=== PATIENT | female | born 1960 | race Two or more races ===

== ENCOUNTER 2020-04-24 12:53 | Outpatient (REF) | payer OTHER, SELFPAY ==
--- NOTE | 2020-04-24 | US_ITS ---
EXAMINATION: MM DIAGNOSTIC DIGITAL BREAST TOMOSYNTHESIS, BILATERAL US DIAGNOSTIC ULTRASOUND BREAST, RIGHT CLINICAL INFORMATION: Due for yearly exam. Also probable benign nodule/cyst anterior 8:00 right breast for follow-up surveillance. The lifetime risk of breast cancer based on the Tyrer-Cuzick Model is 6%. COMPARISON: Mammography: 10/26/2019, 02/18/2019, 02/15/2019, 10/08/2017, 10/01/2015, 07/28/2014; ultrasound right breast 02/18/2019, 10/26/2019. TECHNIQUE: Digital breast tomosynthesis is performed in both the craniocaudal and mediolateral oblique views along with computer-aided detection (CAD). Synthesized 2D images are generated from the tomosynthesis. Ultrasound right breast is targeted to the outer quadrant 6:00 through 11:00 position. Grayscale imaging and color Doppler are performed without and with harmonics. FINDINGS: There are scattered areas of fibroglandular density (ACR BI-RADS breast composition Category b). There is nodular or interval pattern similar to prior studies. The nodule anterior 8:00 right breast for follow-up is decreased since 2018 and in retrospect similar to more remote mammography dating back to 2014. There is now considered benign. There is no developing density. Retroareolar duct ectasia are stable. Dominant nodule posterior right breast is stable. There are no abnormal calcifications. The axilla and skin contours are unremarkable. Ultrasound right breast demonstrates a small septated cyst versus 2 adjacent cysts 8:00 position 6 cm from nipple, slightly smaller now measuring under 4 mm. There is considered benign. There is no solid component or associated color flow. Results are discussed with the patient at time of visit. US/US breast RT limited IMPRESSION: 1. No mammographic evidence of malignancy. 2. Small nodule anterior 8:00 right breast slightly decreased. ASSESSMENT: BI-RADS 2: Benign RECOMMENDATION: Routine annual mammography screening. This patient's information was entered into a reminder system with a target due date for their next mammogram.
--- NOTE | 2020-04-24 13:00 | MM_ITS ---
EXAMINATION: MM DIAGNOSTIC DIGITAL BREAST TOMOSYNTHESIS, BILATERAL US DIAGNOSTIC ULTRASOUND BREAST, RIGHT CLINICAL INFORMATION: Due for yearly exam. Also probable benign nodule/cyst anterior 8:00 right breast for follow-up surveillance. The lifetime risk of breast cancer based on the Tyrer-Cuzick Model is 6%. COMPARISON: Mammography: 10/26/2019, 02/18/2019, 02/15/2019, 10/08/2017, 10/01/2015, 07/28/2014; ultrasound right breast 02/18/2019, 10/26/2019. TECHNIQUE: Digital breast tomosynthesis is performed in both the craniocaudal and mediolateral oblique views along with computer-aided detection (CAD). Synthesized 2D images are generated from the tomosynthesis. Ultrasound right breast is targeted to the outer quadrant 6:00 through 11:00 position. Grayscale imaging and color Doppler are performed without and with harmonics. FINDINGS: There are scattered areas of fibroglandular density (ACR BI-RADS breast composition Category b). There is nodular or interval pattern similar to prior studies. The nodule anterior 8:00 right breast for follow-up is decreased since 2018 and in retrospect similar to more remote mammography dating back to 2014. There is now considered benign. There is no developing density. Retroareolar duct ectasia are stable. Dominant nodule posterior right breast is stable. There are no abnormal calcifications. The axilla and skin contours are unremarkable. Ultrasound right breast demonstrates a small septated cyst versus 2 adjacent cysts 8:00 position 6 cm from nipple, slightly smaller now measuring under 4 mm. There is considered benign. There is no solid component or associated color flow. Results are discussed with the patient at time of visit. MM/MM tomosynthesis diagnostic BI IMPRESSION: 1. No mammographic evidence of malignancy. 2. Small nodule anterior 8:00 right breast slightly decreased. ASSESSMENT: BI-RADS 2: Benign RECOMMENDATION: Routine annual mammography screening. This patient's information was entered into a reminder system with a target due date for their next mammogram.
== END 2020-04-24 12:54 | disposition home or self-care (01) ==
LOC: HO.MAMMO 12:53
PROVIDERS: PCP Internal Medicine Geriatric Medicine; Visit Provider Internal Medicine Geriatric Medicine
DX: N63.13 Unspecified lump in the right breast, lower outer quadrant (principal)
CPT/HCPCS: 76642; 77062; 77066

== ENCOUNTER 2022-11-27 09:30 | Outpatient (REF) | payer OTHER, SELFPAY ==
--- NOTE | 2022-11-27 09:33 | EMG_ITS ---
Please see scanned EMG / Nerve Conduction Report. MTDD
== END 2022-11-27 09:31 | disposition home or self-care (01) ==
LOC: HO.NEURO 09:30
PROVIDERS: PCP Internal Medicine Geriatric Medicine; Visit Provider Internal Medicine Geriatric Medicine
DX: G56.03 Carpal tunnel syndrome, bilateral upper limbs (principal)
CPT/HCPCS: 95860; 95885; 95907; 95913

== ENCOUNTER 2023-07-14 10:24 | Outpatient (REF) | payer OTHER, SELFPAY ==
[2023-07-14 13:18] LABS: Alanine Aminotransferase 21 U/L (0-31); Albumin Level 3.9 g/dL (3.5-5.0); Alkaline Phosphatase 76 U/L (39-117); Anion Gap 11 (12-20); Aspartate Amino Transferase 26 U/L (5-31); Bilirubin Total 0.7 mg/dL (0.0-1.0); Blood Urea Nitrogen 11 mg/dL (9-16); Calcium 9.3 mg/dL (8.4-10.2); Carbon Dioxide 28 mmol/L (22-29); Chloride 108 mmol/L (96-108); Cholesterol 203 mg/dL (<200); Estimated Glomerular Filt Rate > 60; Glucose Random 111 mg/dL (60-115); HDL Cholesterol 62 mg/dL (>40); LDL Cholesterol Calculated 125 mg/dL (<100); Potassium 4.7 mmol/L (3.3-5.1); Sodium 142 mmol/L (135-145); Total Protein 7.3 g/dL (6.5-8.0); Triglycerides 84 mg/dL (<150)
[2023-07-14 13:31] LABS: Microalbum/Creatinine Ratio Ur 12.5 ug/mg cr (<30)
== END 2023-07-14 10:25 | disposition home or self-care (01) ==
LOC: HO.HHCL 10:24
PROVIDERS: Visit Provider Internal Medicine Geriatric Medicine
DX: E11.9 Type 2 diabetes mellitus without complications (principal); I10 Essential (primary) hypertension
CPT/HCPCS: 36415; 80053; 80061; 82043; 82570

== ENCOUNTER 2023-07-29 13:38 | Outpatient (AMB) | payer OTHER, SELFPAY ==
[2023-07-29 13:42] VITALS: BP 136/68; PULSE 78; O2SAT 97; BMI 30.9
--- NOTE | 2023-07-29 13:42 | MHC.OFFVIS ---
Intake Vital Signs 07/29/23 13:42 Height 5 ft 2 in Weight 169 lb BMI 30.9 BP 136/68 Blood Pressure Location Rt brachial Position Sitting Pulse 78 Pulse Source Pulse Oximeter Pulse Oximetry (%) 97 Oxygen Delivery Method Room Air Intake Visit Reasons: Moderate Persistent Asthma Recovery Engineer Required: No Sign Out Clerk: Sign Out Clerk offered & declined Accompanied by: Daughter Allergies aspirin Allergy (Unknown, Verified 07/29/23 13:48) Unknown penicillin V Allergy (Unknown, Verified 07/29/23 13:48) Unknown seasonal allergies Allergy (Uncoded 07/29/23 13:48) asthma sx Medication List - Last Reconciled 07/29/23 by Cynthia Hill LPN albuterol sulfate 90 mcg/actuation 2 puffs inhalation Q4-6H PRN atorvastatin 40 mg PO DAILY dulaglutide 0.75 mg subcut QWEEK fluticasone propion-salmeterol 230-21 mcg/actuation 2 puffs inhalation Q12H fluticasone propionate 50 mcg/actuation 2 sprays intranasal DAILY losartan-hydrochlorothiazide 100-12.5 mg 1 tab PO DAILY metformin 500 mg PO DAILY montelukast 10 mg PO BEDTIME omeprazole 20 mg PO DAILY primidone 50 mg PO BEDTIME HPI Moderate Persistent Asthma HPI Details Maye is a pleasant 62 year old female, never smoker, with underlying asthma, seasonal allergies, HTN, DMII and anxiety. She was referred by PCP for pulmonary evaluation. She is suboptimally controlled on Advair 230 mcg, using albuterol MDI on a daily basis. She was recently started on singulair as well as flonase and has noticed better control of symptoms. She continues to report intermittent chest tightness, dry cough, dyspnea on exertion and wheezing. She reports significant triggers with irritants and allergies. She is using a daily antihistamine. She was evaluated in urgent care a few weeks ago, with recommendations to be evaluated in the ED, but patient refused and was given prednisone, with improvement in symptoms. She reports asthma was diagnosed as an adult and denies h/o intubation. She reports multiple first degree relatives with asthma. She denies any occupational exposures. She reports having two parrots at home. [facility] Social History (Updated 07/29/23 @ 13:50 by Cynthia Hill LPN) Patient Tobacco Use Status: Never used Tobacco Review of Systems Const Denies chills, Denies excessive sweating, Denies fever(s), Denies headache(s) and Denies night sweats Eyes Denies dry eyes, Denies irritation and Denies itchy eyes ENT Reports Normal hearing present, Denies headache(s), Denies nasal congestion, Denies nasal discharge and Denies sore throat Card Denies chest pain, Denies chest pain at rest, Denies chest pain with activity, Denies claudication, Denies leg edema, Denies dyspnea, Denies orthopnea and Denies paroxysmal nocturnal dyspnea Resp Denies chest congestion, Denies excessive phlegm production, Denies pain on inspiration, Denies pain with cough, Denies dyspnea and Denies stridor Musc Denies myalgias Neuro Reports Normal hearing present and Denies headache(s) Endo Denies excessive sweating Fernando/Lymph Denies lymphadenopathy Aller/Immun Denies itchy eyes and Denies seasonal rhinorrhea Physical Exam Vital Signs: Last Vital Signs Pulse 78 07/29/23 13:42 BP 136/68 07/29/23 13:42 Pulse Ox 97 07/29/23 13:42 Oxygen Delivery Method Room Air 07/29/23 13:42 BMI result Body Mass Index 30.9 Const General: cooperative, healthy appearing, comfortable, no acute distress, well developed and alert Nutritional Appearance: obese Orientation/consciousness: patient oriented x3 Limitations: no limitations HEENT Head: Yes normal to inspection, Yes normocephalic and Yes atraumatic Ears: hearing grossly normal bilaterally and external ears normal Eyes General: appearance normal, both eyes and all related structures Eyelids: Yes eyelids normal Sclerae: sclerae normal EOM: EOMs intact bilaterally Neck Neck: Yes normal visual inspection and Yes no lymphadenopathy Lymphatic: no lymphadenopathy noted Chest Chest palpation & inspection: normal inspection of the chest Resp Other: diminished bases bilaterally Effort & Inspection: normal respiratory effort, able to speak in complete sentences, no audible wheezes, no cough, no stridor, not tachypneic, no tripod positioning and no use of accessory muscles Cardio Jugular venous distension: no JVD Rate: regular rate Rhythm: regular rhythm Skin Other: warm, dry General skin exam: no rashes or lesions noted Neuro General: patient oriented x3 Cranial nerves: Yes Normal hearing present Cognition (Neuro): normal cognition Gait exam (Neuro): Normal gait present Extrem General: Yes normal to inspection, Yes capillary refill normal, Yes no clubbing, cyanosis or edema and Yes no pedal edema Psych Appearance: grossly normal and well kempt Speech and movement: Normal speech and movement present and Clear speech present Affect: normal affect Attitude: cooperative Thought process: Normal thought process present Thought content: Normal thought content present Insight: Good insight present (Psych) Judgement: Good judgement present (Psych) Assessment & Plan Assessment & Plan (1) Asthma: Code(s): J45.909 - Unspecified asthma, uncomplicated (2) Environmental and seasonal allergies: Code(s): J30.89 - Other allergic rhinitis Plan Maye's symptoms are likely related to underlying asthma with an allergic component. Will send for PFT and RAST. Discussed possible biologics. Will also obtain CXR as patient with no recent chest imaging and reports worsening respiratory symptoms. All questions were answered and patient is in agreement of plan. Will follow up to review results. Orders: Orders Immunoglobulin E Today J30.89 - Other allergic rhinitis PFT pulmonary function test Today J45.909 - Unspecified asthma, uncomplicated XR chest 2V Today J45.909 - Unspecified asthma, uncomplicated Complete Blood Count Auto Diff Today J30.89 - Other allergic rhinitis, J45.909 - Unspecified asthma, uncomplicated Resp Allergy Profile Region I Today J30.89 - Other allergic rhinitis Coding Level of Care Code New Pt Level 4 (13582) Diagnoses Asthma J45.909 Environmental and seasonal allergies J30.89
== END 2023-07-29 14:17 | disposition home or self-care (01) ==
PROVIDERS: PCP Internal Medicine Geriatric Medicine; Referring Provider Internal Medicine Geriatric Medicine; Visit Provider Nurse Practitioner Family
DX: J45.909 Unspecified asthma, uncomplicated (principal); J30.89 Other allergic rhinitis
CPT/HCPCS: 99204

== ENCOUNTER → 2023-07-29 13:38 | Outpatient (BNVA) | payer OTHER, SELFPAY | PROVIDERS: PCP Internal Medicine Geriatric Medicine; Referring Provider Internal Medicine Geriatric Medicine; Visit Provider Nurse Practitioner Family | DX: J45.909 Unspecified asthma, uncomplicated (principal); J30.89 Other allergic rhinitis | CPT/HCPCS: 99202 ==

== ENCOUNTER 2023-08-04 12:52 | Outpatient (REF) | payer OTHER, SELFPAY ==
[2023-08-04 13:39] LABS: MANUAL DIFF FLAG NO
[2023-08-04 13:49] LABS: Basophils Percent Auto 0.7 % (0-2); Eosinophils Absolute Auto 0.2 X10*3/uL (0.0-0.4); Hematocrit 42.1 % (37.0-47.0); Hemoglobin 13.5 g/dl (12.0-16.0); Imm Gran Abs Auto 0.02 X10*3/uL (0.00-0.03); Imm Gran Pct Auto 0.3 % (0.0-0.4); Lymphocytes Absolute Auto 1.5 X10*3/uL (1.2-4.9); Lymphocytes Percent Auto 25.7 % (20-40); Mean Corpuscular HGB Conc 32.1 g/dl (31.0-35.0); Mean Corpuscular Hemoglobin 29.3 pg (27.0-33.0); Mean Corpuscular Volume 91.3 fL (80.0-98.0); Mean Platelet Volume 10.8 fL (9.4-12.3); Monocytes Absolute Auto 0.4 X10*3/uL (0.1-1.2); Monocytes Percent Auto 7.2 % (2-11); Neutrophils Absolute Auto 3.7 x10*3/uL (2.0-8.3); Neutrophils Percent Auto 62.1 % (45-73); Platelet Count 295 X10*3/uL (160-400); Red Blood Count 4.61 X10*6/uL (4.20-5.50); Red Cell Distribution Width 13.3 % (11.0-16.0)
[2023-08-05 19:43] LABS: Class Alternaria alternata 0; Class Aspergillus fumigatus 0; Class Bermuda Grass 0; Class Birch 0; Class Cat Dander 0; Class Cladosporium herbarum 0; Class Cockroach 0/1; Class Common Ragweed 0; Class Cottonwood 0; Class Derm. pterony 4; Class Dermatophagoides farinae 5; Class Dog Dander 0/1; Class Elm 0; Class Maple Box Elder 0; Class Mountain Cedar 0; Class Mouse Urine Protein 0; Class Mugwort 0; Class Oak 0; Class Penicillium crysogenum 0/1; Class Rough Pigweed 0; Class Sheep Sorrel 0; Class Sycamore 0; Class Timothy Grass 0; Class Walnut Tree 0/1; Class White Ash 0; Class White Mulberry 0; E001 - IgE Cat Dander <0.10 kU/L; E005 - IgE Dog Dander 0.34 kU/L; E072-IgE Mouse Urine <0.10 kU/L; G002 IgE Bermuda Grass <0.10 kU/L; G006 - IgE Timothy Grass <0.10 kU/L; I006-IgE Cockroach, German 0.29 kU/L; Immunoglobulin E 521 kU/L (<OR=114); M001 IgE Penicillium chrysogen 0.17 kU/L; M002 - IgE Cladosporium herbar <0.10 kU/L; M003 - IgE Aspergillus fumigat <0.10 kU/L; M006 - IgE Alternaria alternat <0.10 kU/L; T001 IgE Maple/Box Elder <0.10 kU/L; T003 IgE Common Silver Birch <0.10 kU/L; T006 - IgE Cedar, Mountain <0.10 kU/L; T007 - IgE Oak, White <0.10 kU/L; T008 IgE Elm, American <0.10 kU/L; T010 - IgE Walnut 0.13 kU/L; T011 - IgE Maple Leaf Sycamore <0.10 kU/L; T014 - IgE Cottonwood <0.10 kU/L; T015 - IgE Ash, White <0.10 kU/L; T070 - IgE White Mulberry <0.10 kU/L; W001 - IgE Ragweed, Short <0.10 kU/L; W006 - IgE Mugwort <0.10 kU/L; W014 IgE Pigweed, Common <0.10 kU/L; W018 IgE Sheep Sorrel <0.10 kU/L
== END 2023-08-04 12:53 | disposition home or self-care (01) ==
LOC: HO.WFDLDS 12:52
PROVIDERS: Visit Provider Nurse Practitioner Family
DX: J30.89 Other allergic rhinitis (principal); J45.909 Unspecified asthma, uncomplicated
CPT/HCPCS: 36415; 82785; 85025; 86003

== ENCOUNTER 2023-08-28 13:17 | Outpatient (REF) | payer OTHER, SELFPAY ==
--- NOTE | ~2023-08-28 | XR_ITS ---
EXAMINATION: XR CHEST CLINICAL INFORMATION: Unspecified asthma, uncomplicated. COMPARISON: 01/29/2019. TECHNIQUE: 2 views of the chest were obtained. FINDINGS: There is no gross pneumothorax. Heart size is normal. Mild S-shaped thoracolumbar scoliosis with multilevel degenerative changes. No pleural effusion. No new focal consolidation to suggest pneumonia. Lungs are well-inflated. XR/XR chest 2V IMPRESSION: No evidence of pneumonia.
== END 2023-08-28 13:18 | disposition home or self-care (01) ==
LOC: HO.XRAY 13:17
PROVIDERS: Visit Provider Nurse Practitioner Family
DX: J45.909 Unspecified asthma, uncomplicated (principal)
CPT/HCPCS: 71046

== ENCOUNTER 2023-09-01 12:53 | Outpatient (REF) | payer OTHER, SELFPAY ==
[2023-09-01 10:51] VITALS: PULSE 84; RESP 16; O2SAT 97
--- NOTE | 2023-09-01 15:42 | PFT_ITS ---
Indication: Asthma Spirometry [FEV1 to FVC 75%; FEV1 1.52 L; FVC 2.02 L. No significant response to bronchodilators noted. Maximum voluntary ventilation 56% predicted] Lung Volumes [Total lung capacity 76% predicted; expiratory reserve volume 31% predicted] Diffusion Capacity [DLCO is 93% predicted] Comparisons [None] Interpretation [No obstructive ventilatory defects. No significant response to bronchodilators noted. This is a moderate decrease in the maximum voluntary ventilation. The patient does have a restrictive ventilatory defect consistent mild restrictive lung disease. In part due to elevated BMI with a decreasing the expiratory reserve volume. Diffusing capacity is within normal limits. Correlation warranted. If asthma is in the differential methacholine challenge very helpful for assessing for hyperreactive airways.] MTDD
== END 2023-09-01 12:54 | disposition home or self-care (01) ==
LOC: HO.RESP 12:53
PROVIDERS: PCP Internal Medicine Geriatric Medicine; Visit Provider Nurse Practitioner Family
DX: J45.909 Unspecified asthma, uncomplicated (principal)
CPT/HCPCS: 94010; 94640; 94727; 94729

== ENCOUNTER → 2023-09-01 15:42 | Outpatient (BNV) | payer OTHER, SELFPAY | PROVIDERS: PCP Internal Medicine Geriatric Medicine; Visit Provider Hospitalist | DX: J45.909 Unspecified asthma, uncomplicated (principal) | CPT/HCPCS: 94060; 94727; 94729 ==

== ENCOUNTER 2023-09-09 13:25 | Outpatient (AMB) | payer OTHER, SELFPAY ==
--- NOTE | 2023-09-09 13:29 | A.OFFVIS_ITS ---
Vital Signs 09/09/23 13:30 Height 5 ft 2 in Weight 169 lb BMI 30.9 BP 122/66 Blood Pressure Location Rt brachial Position Sitting Pulse 72 Pulse Source Pulse Oximeter Pulse Oximetry (%) 97 Oxygen Delivery Method Room Air Intake Visit Reasons: moderate persistent asthma Allergies aspirin Allergy (Unknown, Verified 09/09/23 13:32) Unknown penicillin V Allergy (Unknown, Verified 09/09/23 13:32) Unknown seasonal allergies Allergy (Uncoded 09/09/23 13:32) asthma sx HPI HPI moderate persistent asthma: Details: Maye is a pleasant 62 year old female, never smoker, with underlying asthma, seasonal allergies, HTN, DMII and anxiety. At the last visit, she had reported suboptimal control on Advair 230 mcg, singulair and loratidine, however after further discussion today she admitted to not using consistently. She continues to report dyspnea on exertion. She denies wheezing, cough or chest tightness. She denies any visits to urgent care or hospitalizations since the last visit. Today she presents to review PFT, CXR and RAST. [facility] Social History Patient Tobacco Use Status: Never used Tobacco Review of Systems Const Denies chills, Denies excessive sweating, Denies fever(s), Denies headache(s) and Denies night sweats Eyes Denies dry eyes, Denies irritation and Denies itchy eyes ENT Reports Normal hearing present, Denies headache(s), Denies nasal congestion, Denies nasal discharge and Denies sore throat Card Denies chest pain, Denies chest pain at rest, Denies chest pain with activity, Denies claudication, Denies leg edema, Denies orthopnea and Denies paroxysmal nocturnal dyspnea Resp Denies chest congestion, Denies excessive phlegm production, Denies pain on inspiration, Denies pain with cough and Denies stridor Musc Denies myalgias Neuro Reports Normal hearing present and Denies headache(s) Endo Denies excessive sweating Fernando/Lymph Denies lymphadenopathy Aller/Immun Denies itchy eyes and Denies seasonal rhinorrhea Physical Exam Vital Signs: Last Vital Signs Pulse 72 09/09/23 13:30 BP 122/66 09/09/23 13:30 Pulse Ox 97 09/09/23 13:30 Oxygen Delivery Method Room Air 09/09/23 13:30 BMI result Body Mass Index 30.9 Const General: cooperative, healthy appearing, comfortable, no acute distress, well developed and alert Nutritional Appearance: obese Orientation/consciousness: patient oriented x3 Limitations: no limitations HEENT Head: Yes normal to inspection, Yes normocephalic and Yes atraumatic Ears: hearing grossly normal bilaterally and external ears normal Eyes General: appearance normal, both eyes and all related structures Eyelids: Yes eyelids normal Sclerae: sclerae normal EOM: EOMs intact bilaterally Neck Neck: Yes normal visual inspection and Yes no lymphadenopathy Lymphatic: no lymphadenopathy noted Chest Chest palpation & inspection: normal inspection of the chest Resp Other: diminished bases bilaterally Effort & Inspection: normal respiratory effort, able to speak in complete sentences, no audible wheezes, no cough, no stridor, not tachypneic, no tripod positioning and no use of accessory muscles Cardio Jugular venous distension: no JVD Rate: regular rate Rhythm: regular rhythm Skin Other: warm, dry General skin exam: no rashes or lesions noted Neuro General: patient oriented x3 Cranial nerves: Yes Normal hearing present Cognition (Neuro): normal cognition Gait exam (Neuro): Normal gait present Extrem General: Yes normal to inspection, Yes capillary refill normal, Yes no clubbing, cyanosis or edema and Yes no pedal edema Psych Appearance: grossly normal and well kempt Speech and movement: Normal speech and movement present and Clear speech present Affect: normal affect Attitude: cooperative Thought process: Normal thought process present Thought content: Normal thought content present Insight: Good insight present (Psych) Judgement: Good judgement present (Psych) Results Reviewed Results Reviewed: [place] [id number] XRay Report Signed Patient: Maye Linder MR#: [id number] : 1960 Acct:[id number] Age/Sex: 62 / F ADM Date: 08/28/23 Loc: [facility] Attending Dr: Ange Berg NP Ordering Physician: Ange Berg NP Date of Service: 08/28/23 Procedure(s): XR chest 2V Accession Number(s): [id number] cc: Ange Berg NP~ EXAMINATION: XR CHEST CLINICAL INFORMATION: Unspecified asthma, uncomplicated. COMPARISON: 01/29/2019. TECHNIQUE: 2 views of the chest were obtained. FINDINGS: There is no gross pneumothorax. Heart size is normal. Mild S-shaped thoracolumbar scoliosis with multilevel degenerative changes. No pleural effusion. No new focal consolidation to suggest pneumonia. Lungs are well-inflated. XR/XR chest 2V IMPRESSION: No evidence of pneumonia. Dictated By: Princess Graff MD Signed By: <Electronically signed by Princess Graff MD in OV> 09/03/23 0635 DD/ 1400 TD/TT: Hospitality Host: Assessment & Plan Assessment & Plan (1) Asthma: Code(s): J45.909 - Unspecified asthma, uncomplicated Category: Medical (2) Environmental and seasonal allergies: Code(s): J30.89 - Other allergic rhinitis Category: Medical Plan Reviewed RAST which was positive to DM, trees, mold, dog and cockroaches. IgE 521. She reports allergic symptoms have been controlled with singulair and loratidine. Reviewed PFT which revealed no obstructive ventilatory defects. No significant response to bronchodilators noted. This is a moderate decrease in the maximum voluntary ventilation. The patient does have a restrictive ventilatory defect consistent mild restrictive lung disease. In part due to elevated BMI with a decreasing the expiratory reserve volume. Diffusing capacity is within normal limits. We discussed methacholine challenge but patient would like to hold off at this time. After discussion patient continues with dyspnea on exertion and would like to trial advair 1 inhalation twice daily. Will follow up in 8-10 weeks to assess response to inhaler or sooner if needed. Medications: Changed From fluticasone propion-salmeterol 230-21 mcg/actuation 2 puffs inhalation Q12H To fluticasone propion-salmeterol 230-21 mcg/actuation 1 inh inhalation Q12H 12 grams 3RF Coding Level of Care Code Est Pt Level 4 (37611) Diagnoses Asthma J45.909 Environmental and seasonal allergies J30.89
[2023-09-09 13:30] VITALS: BP 122/66; PULSE 72; O2SAT 97; BMI 30.9
== END 2023-09-09 13:51 | disposition home or self-care (01) ==
PROVIDERS: PCP Internal Medicine Geriatric Medicine; Visit Provider Nurse Practitioner Family
DX: J45.909 Unspecified asthma, uncomplicated (principal); J30.89 Other allergic rhinitis
CPT/HCPCS: 99214

== ENCOUNTER → 2023-09-09 13:25 | Outpatient (BNVA) | payer OTHER, SELFPAY | PROVIDERS: PCP Internal Medicine Geriatric Medicine; Visit Provider Nurse Practitioner Family | DX: J45.40 Moderate persistent asthma, uncomplicated (principal); J30.89 Other allergic rhinitis | CPT/HCPCS: 99212 ==

== ENCOUNTER 2023-12-01 10:36 | Outpatient (REF) | payer OTHER, SELFPAY ==
--- NOTE | ~2023-12-01 | MM_ITS ---
EXAMINATION: MM SCREENING DIGITAL BREAST TOMOSYNTHESIS, BILATERAL CLINICAL INFORMATION: Screening. Asymptomatic. COMPARISON: Mammography: This study is compared with prior exams dating back to 2018. TECHNIQUE: Digital breast tomosynthesis is performed in both the craniocaudal and mediolateral oblique views along with computer-aided detection (CAD). Direct 2-D images in the standard screening projections are also obtained. FINDINGS: There are scattered areas of fibroglandular density (ACR BI-RADS breast composition Category b). There are no significant masses, abnormal calcifications, or other abnormalities. There is coarse area of calcification in the subcentimeter benign mass of the upper outer quadrant of the right breast. There is a biopsy tissue marker in the medial aspect of the right breast at its deep third. MM/MM tomosynthesis screening BI IMPRESSION: No mammographic evidence of malignancy. ASSESSMENT: BI-RADS BI-RADS 2 - Benign Findings RECOMMENDATION: Routine annual mammography screening. 1 year F/U This examination should not preclude the clinical evaluation of a suspicious palpable abnormality. This patient's information was entered into a reminder system with a target due date for their next mammogram. Electronically signed by: Valentina Mancia MD 12/25/2023 03:24 PM EDT
== END 2023-12-01 10:37 | disposition home or self-care (01) ==
LOC: HO.MAMMO 10:36
PROVIDERS: PCP Internal Medicine Geriatric Medicine; Visit Provider Internal Medicine Geriatric Medicine
DX: Z12.31 Encounter for screening mammogram for malignant neoplasm of breast (principal)
CPT/HCPCS: 77063; 77067

== ENCOUNTER → 2023-12-01 11:30 | Outpatient (BNV) | payer OTHER, SELFPAY | PROVIDERS: PCP Internal Medicine Geriatric Medicine; Visit Provider Radiology Diagnostic Radiology | DX: Z12.31 Encounter for screening mammogram for malignant neoplasm of breast (principal) | CPT/HCPCS: 77063; 77067 ==

== ENCOUNTER 2023-12-17 13:30 | Outpatient (AMB) | payer OTHER, SELFPAY ==
--- NOTE | 2023-12-17 13:32 | A.OFFVIS_ITS ---
Vital Signs 12/17/23 13:33 Height 5 ft 2 in Weight 166 lb 4 oz BMI 30.4 BP 128/74 Blood Pressure Location Rt brachial Position Sitting Pulse 75 Pulse Source Pulse Oximeter Pulse Oximetry (%) 95 Oxygen Delivery Method Room Air Intake Visit Reasons: moderate persistent asthma Allergies aspirin Allergy (Unknown, Verified 12/17/23 13:35) Unknown penicillin V Allergy (Unknown, Verified 12/17/23 13:35) Unknown seasonal allergies Allergy (Uncoded 12/17/23 13:35) asthma sx HPI HPI moderate persistent asthma: Details: Maye is a pleasant 62 year old female, never smoker, with underlying asthma, seasonal allergies, HTN, DMII and anxiety. She had previously reported suboptimal control on Advair 230 mcg, singulair and loratidine, however after further discussion today she admitted to not using consistently. Since the last visit, she has started using Advair consistently and has had excellent control of symptoms. She denies any use of albuterol. She denies any visits to urgent care or hospitalizations since the last visit. [facility] Social History Patient Tobacco Use Status: Never used Tobacco Review of Systems Const Denies chills, Denies excessive sweating, Denies fever(s), Denies headache(s) and Denies night sweats Eyes Denies dry eyes, Denies irritation and Denies itchy eyes ENT Reports Normal hearing present, Denies headache(s), Denies nasal congestion, Denies nasal discharge and Denies sore throat Card Denies chest pain, Denies chest pain at rest, Denies chest pain with activity, Denies claudication, Denies leg edema, Denies orthopnea and Denies paroxysmal nocturnal dyspnea Resp Denies chest congestion, Denies excessive phlegm production, Denies pain on inspiration, Denies pain with cough and Denies stridor Musc Denies myalgias Neuro Reports Normal hearing present and Denies headache(s) Endo Denies excessive sweating Fernando/Lymph Denies lymphadenopathy Aller/Immun Denies itchy eyes and Denies seasonal rhinorrhea Physical Exam Vital Signs: Last Vital Signs Pulse 75 12/17/23 13:33 BP 128/74 12/17/23 13:33 Pulse Ox 95 12/17/23 13:33 Oxygen Delivery Method Room Air 08/28/24 13:33 BMI result Body Mass Index 30.4 Const General: cooperative, healthy appearing, comfortable, no acute distress, well developed and alert Nutritional Appearance: obese Orientation/consciousness: patient oriented x3 Limitations: no limitations HEENT Head: Yes normal to inspection, Yes normocephalic and Yes atraumatic Ears: hearing grossly normal bilaterally and external ears normal Eyes General: appearance normal, both eyes and all related structures Eyelids: Yes eyelids normal Sclerae: sclerae normal EOM: EOMs intact bilaterally Neck Neck: Yes normal visual inspection and Yes no lymphadenopathy Lymphatic: no lymphadenopathy noted Chest Chest palpation & inspection: normal inspection of the chest Resp Other: diminished bases bilaterally Effort & Inspection: normal respiratory effort, able to speak in complete sentences, no audible wheezes, no cough, no stridor, not tachypneic, no tripod positioning and no use of accessory muscles Cardio Jugular venous distension: no JVD Rate: regular rate Rhythm: regular rhythm Skin Other: warm, dry General skin exam: no rashes or lesions noted Neuro General: patient oriented x3 Cranial nerves: Yes Normal hearing present Cognition (Neuro): normal cognition Gait exam (Neuro): Normal gait present Extrem General: Yes normal to inspection, Yes capillary refill normal, Yes no clubbing, cyanosis or edema and Yes no pedal edema Psych Appearance: grossly normal and well kempt Speech and movement: Normal speech and movement present and Clear speech present Affect: normal affect Attitude: cooperative Thought process: Normal thought process present Thought content: Normal thought content present Insight: Good insight present (Psych) Judgement: Good judgement present (Psych) Assessment & Plan Assessment & Plan (1) Asthma: Code(s): J45.909 - Unspecified asthma, uncomplicated Category: Medical (2) Environmental and seasonal allergies: Code(s): J30.89 - Other allergic rhinitis Category: Medical Plan Maye reports excellent control of respiratory symptoms with current regimen, advised to continue and will send refills. ALl questions were answered and patient is in agreement of plan. Will follow up in 6 months or sooner if needed. Medications: New loratadine (Allergy Relief (loratadine)) 10 mg PO DAILY 30 tabs 6RF Refilled montelukast 10 mg PO BEDTIME 30 tabs 6RF Advair HFA 230-21 mcg/actuation (fluticasone propion-salmeterol) 1 inh inhalation Q12H 12 grams 6RF NS J45.909 - Unspecified asthma, uncomplicated Coding Level of Care Code Est Pt Level 3 (50508) Diagnoses Asthma J45.909 Environmental and seasonal allergies J30.89
[2023-12-17 13:33] VITALS: BP 128/74; PULSE 75; O2SAT 95; BMI 30.4
== END 2023-12-17 13:58 | disposition home or self-care (01) ==
PROVIDERS: PCP Internal Medicine Geriatric Medicine; Visit Provider Nurse Practitioner Family
DX: J45.909 Unspecified asthma, uncomplicated (principal); J30.89 Other allergic rhinitis
CPT/HCPCS: 99213

== ENCOUNTER → 2023-12-17 13:30 | Outpatient (BNVA) | payer OTHER, SELFPAY | PROVIDERS: PCP Internal Medicine Geriatric Medicine; Visit Provider Nurse Practitioner Family | DX: J45.40 Moderate persistent asthma, uncomplicated (principal); J30.89 Other allergic rhinitis; Z79.899 Other long term (current) drug therapy | CPT/HCPCS: 99212 ==

== ENCOUNTER 2024-06-16 09:58 | Outpatient (AMB) | payer OTHER, SELFPAY ==
--- NOTE | 2024-06-16 09:06 | MHC.OFFVIS ---
Vital Signs 06/16/24 09:59 Height 5 ft 2 in Weight 165 lb BMI 30.2 BP 118/64 Blood Pressure Location Rt brachial Position Sitting Pulse 76 Pulse Source Pulse Oximeter Pulse Oximetry (%) 96 Oxygen Delivery Method Room Air Intake Visit Reasons: moderate persistent asthma Operations Administrative Assistant Required: No Network Systems Operator: Network Systems Operator offered & declined Accompanied by: Daughter Allergies aspirin Allergy (Unknown, Verified 06/16/24 10:05) Unknown penicillin V Allergy (Unknown, Verified 06/16/24 10:05) Unknown seasonal allergies Allergy (Uncoded 06/16/24 10:05) asthma sx Medication List - Last Reconciled 06/16/24 by Cynthia Hill LPN Advair HFA 230-21 mcg/actuation (fluticasone propion-salmeterol) 1 inh inhalation Q12H NS albuterol sulfate 90 mcg/actuation 2 puffs inhalation Q4-6H PRN atorvastatin 40 mg PO DAILY dulaglutide 0.75 mg subcut QWEEK fluticasone propionate 50 mcg/actuation 2 sprays intranasal DAILY loratadine (Allergy Relief (loratadine)) 10 mg PO DAILY losartan-hydrochlorothiazide 100-12.5 mg 1 tab PO DAILY metformin 500 mg PO DAILY montelukast 10 mg PO BEDTIME omeprazole 20 mg PO DAILY primidone 50 mg PO BEDTIME semaglutide (Ozempic) 0.5 mg subcut QWEEK HPI HPI moderate persistent asthma: Details: Maye is a pleasant 63 year old female, never smoker, with underlying asthma, seasonal allergies, HTN, DMII and anxiety. Today she is accompanied by her daughter and presents for routine visit. Since the last visit she has had excellent control of respiratory symptoms using Advair 230 mcg two inhalations BID, Singulair and loratidine, rarely requiring albuterol MDI. She denies any visits to urgent care or hospitalizations related to respiratory distress since the last visit. [facility] Social History Patient Tobacco Use Status: Never used Tobacco Review of Systems Const Denies chills, Denies excessive sweating, Denies fever(s), Denies headache(s) and Denies night sweats Eyes Denies dry eyes, Denies irritation and Denies itchy eyes ENT Reports Normal hearing present, Denies headache(s), Denies nasal congestion, Denies nasal discharge, Denies post nasal drip and Denies sore throat Card Denies chest pain, Denies chest pain at rest, Denies chest pain with activity, Denies claudication, Denies leg edema, Denies dyspnea, Denies dyspnea on exertion, Denies orthopnea and Denies paroxysmal nocturnal dyspnea Resp Denies chest congestion, Denies cough, Denies excessive phlegm production, Denies pain on inspiration, Denies pain with cough, Denies dyspnea, Denies dyspnea on exertion, Denies stridor and Denies wheezing Musc Denies myalgias Neuro Reports Normal hearing present and Denies headache(s) Endo Denies excessive sweating Fernando/Lymph Denies lymphadenopathy Aller/Immun Denies itchy eyes, Denies seasonal rhinorrhea and Denies wheezing Physical Exam Vital Signs: Last Vital Signs Pulse 76 06/16/24 09:59 BP 118/64 06/16/24 09:59 Pulse Ox 96 06/16/24 09:59 Oxygen Delivery Method Room Air 06/16/24 09:59 BMI result Body Mass Index 30.2 Const General: cooperative, healthy appearing, comfortable, no acute distress, well developed and alert Orientation/consciousness: patient oriented x3 Limitations: no limitations HEENT Head: Yes normal to inspection, Yes normocephalic and Yes atraumatic Ears: hearing grossly normal bilaterally and external ears normal Eyes General: appearance normal, both eyes and all related structures Eyelids: Yes eyelids normal Sclerae: sclerae normal EOM: EOMs intact bilaterally Neck Neck: Yes normal visual inspection and Yes no lymphadenopathy Lymphatic: no lymphadenopathy noted Chest Chest palpation & inspection: normal inspection of the chest Resp Effort & Inspection: normal respiratory effort, able to speak in complete sentences, no audible wheezes, no cough, no stridor, not tachypneic, no tripod positioning and no use of accessory muscles Auscultation: clear to auscultation bilaterally Cardio Jugular venous distension: no JVD Rate: regular rate Rhythm: regular rhythm Skin Other: warm, dry General skin exam: no rashes or lesions noted Neuro General: patient oriented x3 Cranial nerves: Yes Normal hearing present Cognition (Neuro): normal cognition Gait exam (Neuro): Normal gait present Extrem General: Yes normal to inspection, Yes capillary refill normal, Yes no clubbing, cyanosis or edema and Yes no pedal edema Psych Appearance: grossly normal and well kempt Speech and movement: Normal speech and movement present and Clear speech present Affect: normal affect Attitude: cooperative Thought process: Normal thought process present Thought content: Normal thought content present Insight: Good insight present (Psych) Judgement: Good judgement present (Psych) Assessment & Plan Assessment & Plan (1) Asthma: Code(s): J45.909 - Unspecified asthma, uncomplicated Category: Medical (2) Environmental and seasonal allergies: Code(s): J30.89 - Other allergic rhinitis Category: Medical Plan Maye reports excellent control of respiratory symptoms with current regimen, advised to continue and will send refills. She is aware to call if symptoms worsen as Spring approaches. All questions were answered and patient is in agreement of plan. Will follow up in 6 months or sooner if needed. Medications: Refilled montelukast 10 mg PO BEDTIME 30 tabs 6RF Advair HFA 230-21 mcg/actuation (fluticasone propion-salmeterol) 1 inh inhalation Q12H 12 grams 6RF NS J45.909 - Unspecified asthma, uncomplicated loratadine (Allergy Relief (loratadine)) 10 mg PO DAILY 30 tabs 6RF Coding Level of Care Code Est Pt Level 3 (95369) Diagnoses Asthma J45.909 Environmental and seasonal allergies J30.89
[2024-06-16 09:59] VITALS: BP 118/64; PULSE 76; O2SAT 96; BMI 30.2
--- OUTSIDE RECORDS SUMMARY | 2024-06-16 11:54 | XMS_ITS | Encounter Summary ---
Author Organization [employer] Address [address] [place] [address] Care Team Providers Care Wallpaper Embosser Helper Name Role Phone Name, Sudeep BESS Primary Care Provider [phone] Reason for Visit * Reason Comments Med Refill Encounter Details Date Type Department Care Team ([facility] st Contact Info) Description 11/24/2023 Refill [facility] MEDICINE [address], [place] [phone] Name, MD Sudeep [address], [place] [phone] Social History Tobacco Use Types Packs/Day Years Used Date Smoking Tobacco: Never Smokeless Tobacco: Never Alcohol Use Standard Drinks/Week Comments Yes 0 (1 standard drink = 0.6 oz pur e alcohol) occassional Alcohol Answer Date Recorded Frequency of Alcohol Consumption Not on file 10/16/2023 Average Number of Drinks Not on file 024 Frequency of Binge Drinking Not on file 09/20 Score 0 10/16/2023 Depression Answer Date Recorded Patient Health Questionnaire-9 Score 0 07/14/2023 Patient Health Questionnaire-9 Score 0 07/14/2023 Last PHQ-9: Questionnaire Data Not on file 0 07/14/2023 Housing Stability Answer Date Recorded What is your housing situation today? I have maik barnes 07/14/[address] you li ve. Do you have problems with any of the following? None of the above 07/14/2023 Food Insecurity Answer Date Recorded Within the past 12 months, y ou worried that your food would run out before you got money to buy more: Never True 07/14/2023 Within the past 12 months,th e food you bought just didn't last and you didn't have enough money to get more: Never True Transportation Answer Date Recorded In the past 12 months, has l ack of transportation kept you from medical appts, meetings, work or from getting things needed for daily living? No 07/14/2023 Utilities Answer Date Recorded In the past 12 months, has t he electric, gas, oil or water company threatened to shut off services in your home? No 07/14/2023 Depression Answer Date Recorded Patient Health Questionnaire-2 Score 0 07/14/2023 Comments Unknown Sex and Gender Information Value Date Recorded Sex Assigned at Female 02/18/2022 10:18 AM EDT Legal Sex Female 10:18 AM EDT Gender Identity Female 02/18/2022 10:18 AM EDT Sexual Orientation Choose not to disclose 2021 10:18 AM EDT documented as of this encounter Plan of Treatment Upcoming Encounters Date Type Department Care Team (Late st Contact Info) Description 06/22/2024 11:30 AM EST Office Visit [facility] MEDICINE [address] [place] [id number] Name, MD Sudeep [address] [place] [phone] documented as of this encounter Visit Diagnoses Not on filedocumented in this encounter Additional Health Concerns Assessment Noted Time PHQ-9 Depression Total Score: 0 07/14/19 24 9:31 AM EDT documented as of this encounter Care Teams Wallpaper Embosser Helper Relationship Specialty Start Date End Date NameSudeep MD [address] [place] [id number] PCP - General Family Medicine 05/24/15 documented as of this encounter
--- OUTSIDE RECORDS SUMMARY | 2024-06-16 11:55 | XMS_ITS | Clinical Summary ---
Author Organization [employer] Address [address] [facility] [address] [place] [address] Care Team Providers Care Flight Operations Engineer Name Role Phone Name, Sudeep BESS Primary Care Provider [phone] Allergies Active Allergy Reactions Criticality Noted Date Comments Aspirin Itching 10/13/2015 Penicillin G 10/13/2015 Penicillins Swelling 05/22/2022 Propranolol 10/13/2015 Medications primidone (Mysoline) 50 MG tabletIndications :Moderate persistent asthma, unspecified whether complicated Take 1 tablet (50 mg) by mouth in the morning. 90 tablet 3 3 Active fluticasone (Flonase) 50 MCG/ACT nasal spray Administer 2 sprays into each nostril in the morning. Shake gently. Before first use, prime pump. After use, clean tip and replace cap. 16 g 2 4 07/14/19 25 Active Blood Pressure kit Use twice a day 1 kit 4 Active fluticasone-salme terol (Advair HFA) 230-21 MCG/ACT inhalerIndication s:Moderate persistent asthma without complication Inhale 2 puffs every 12 (twelve) hours. 4 Active albuterol 108 (90 Base) MCG/ACT inhalerIndication s:Moderate persistent asthma without complication Inhale 2 puffs every 4 (four) hours if needed for wheezing or shortness of breath. 4 Active metFORMIN (Glucophage) 500 MG tabletIndications :Type 2 diabetes mellitus without complication, without long-term current use of insulin (CMS/HCC) Take 1 tablet (500 mg) by mouth Once per day. 90 tablet 3 4 02/09/20 25 Active amLODIPine (Norvasc) 2.5 MG tablet Take 2 tablets (5 mg) by mouth Once per day. 60 tablet 11 4 02/09/20 Active atorvastatin (Lipitor) 40 MG tabletIndications :Type 2 diabetes mellitus without complication, without long-term current use of insulin ([facility]) Take 1 tablet (40 mg) by mouth Once per day. 90 tablet 3 4 02/09/20 Active omeprazole (PriLOSEC) [address] capsuleIndication s:Moderate persistent asthma, unspecified whether complicated TAKE 1 CAPSULE BY MOUTH EVERY DAY 30 MINUTES TO 1 HOUR BEFORE A MEAL 90 capsule 3 4 Active semaglutide (Ozempic) 2 MG/1.5ML solution pen-injector Inject 1 mg under the skin 1 (one) time per week. 2 each 12 4 Active montelukast (Singulair) 10 MG tabletIndications :Moderate persistent asthma, unspecified whether complicated Take 1 tablet (10 mg) by mouth in the evening. 90 tablet 3 4 02/09/20 Active Active Problems Problem Noted Date Diagnosed Date Coarse tremor 12/09/2017 Moderate persistent asthma 02/14/2017 Low back pain radiating to right leg 01/01/2017 Type 2 diabetes mellitus without complication Anxiety 01/17/2016 Essential hypertension 01/17/2016 Heartburn 06/19/2015 Migraine 06/19/2015 Resolved Problems Problem Noted Date Diagnosed Date Resolved Date Cough 06/20/2022 02/09/2024 Exacerbation of asthma 01/13/201702/08 Hypoxia 01/13/2017 02/09/2024 Prediabetes 07/30/2016 02/09/2024 Mild persistent asthma 06/19/201506/20 Immunizations Name Administration Dates Next Due Influenza injectable quadriv alent preservative free 06/19/2015 Influenza, IIV3, injectable 12/22/2012,1 05/10/2011,01/22/2011,02/16,01/11/2009 Novel [id number], preservative-free 04/17/2009 Pneumococcal Polysaccharide PPSV23 07/17/2009 Td (adult), unspecified 11/07/2000 Tdap 02/05/2012 Social History Tobacco Use Types Packs/Day Years Used Date Smoking Tobacco: Never Smokeless Tobacco: Never Tobacco Cessation:Counseling Given: Not Answered Alcohol Use Standard Drinks/Week Comments Yes 0 [...] not to disclose 2021 10:18 AM EDT Last Filed Vital Signs Vital Sign Reading Time Taken Comments Blood Pressure 144/83 02/09/2024 11:48 AM EDT Pulse 71 02/09/2024 11:48 AM EDT Temperature 36.1 ??C (96.9 ??F) 10/16/2023 9:48 AM ED T Respiratory Rate 21 02/09/2024 11:48 AM EDT Oxygen Saturation 98% 02/09/2024 11:48 AM EDT Inhaled Oxygen Concentration - - Weight 75.1 kg (165 lb 9.6 oz) 02/09/2024 11:48 AM EDT Height 157.5 cm (5' 2 ) 10/16/2023 9:48 AM EDT Body Mass Index 30.29 10/16/2023 9:48 AM EDT Plan of Treatment Upcoming Encounters Date Type Department Care Team (Late st Contact Info) Description 06/22/2024 11:30 AM EST Office Visit [facility] [address] [place] [address] Name, MD Sudeep [address] [place] [address] Health Maintenance Due Date Last Done Comments CT Colonography 1959 Colonoscopy 1959 FIT 1959 FOBT 1960 HIV Screening 1960 Sigmoidoscopy 1959 Eye Exam 12/22/1969 Hepatitis C Screening 12/22/1977 Zoster Vaccines (1 of 2) 12/22/2009 Pneumococcal Vaccine: 50+ Years (2 of 2 - PCV) 07/17/2010 07/17/2009 Pneumococcal Vaccine: Pediatrics (0 to 5 Years) and At-Risk Patients (6 to 49) Years) (2 of 2 - PCV) 07/17/2010 07/17/2009 RSV Patients and Patients Aged 60 years or older (1 - Risk 60-74 years 1-dose series) 2019 DTaP/Tdap/Td Vaccines (2 - Td or Tdap) 02/04/2022 02/05/2012, 11/07/2000 COVID-19 Vaccine ( season) 2023 08/31/2021, 03/14/2021, 09/07/2020 Influenza Vaccine (#1) 2023 6, 12/22/2012, 03/10/2012, Additional history exists Diabetes: Hemoglobin A1C 04/16/2024 024, 07/14/2023, 06/12/2022, Additional history exists Depression Screening 07/13/2024 07/14/2023, 07/14/19 Diabetes: Foot Exam 07/13/2024 07/14/2023, 07/14/2023, 07/14/2023, Additional history exists Diabetes: Urine Protein Screening 07/13/2024 07/14/2023, 06/12/2022, 11/05/2021, Additional history exists Lipid Panel 07/13/2024 07/14/2023, 05/23, 11/05/2021, Additional history exists SDOH Screening 07/13/2024 07/14/2023 Alcohol/Substance Use Screening 10/15/2024 10/16/2023 Tobacco Screening 02/08/2025 02/09/2024 Pap Smear 03/13/2025 03/13/2022 Colorectal Cancer Screening 04/09/2025 FIT DNA/Cologuard 04/09/2025 04/09/2022 Mammogram 11/30/2025 12/01/2023, 0 07/2020, 04/24/2020, Additional history exists Cervical Cancer Screening 03/13/2027 HPV/Cotest 03/13/2027 03/13/2022, 09/18/2016 HIB Vaccines Aged Out No longer eligi ble based on patient's age to complete this topic HPV Vaccines Aged Out No longer eligi ble based on patient's age to complete this topic Hepatitis A Vaccines Aged Out No long er eligible based on patient's age to complete this topic Hepatitis B Vaccines Aged Out No long er eligible based on patient's age to complete this topic IPV Vaccines Aged Out No longer eligi ble based on patient's age to complete this topic Meningococcal Vaccine Aged Out No letitia millicent eligible based on patient's age to complete this topic RSV under 20 months Aged Out No longe r eligible based on patient's age to complete this topic Rotavirus Vaccines Aged Out No longer eligible based on patient's age to complete this topic Procedures Procedure Name Priority Date/Time Associated Diagnosis Comments BI MAMMOGRAM SCREENING TOMOSYNTHESIS BILATERAL Routine 12/01/2023 10:55 AM EDT Encounter for screening mammogram for malignant neoplasm of breast POCT GLYCATED HEMOGLOBIN, TOTAL Routine 10/16/2023 10:10 AM EDT Type 2 diabetes mellitus without complication, without long-term current use of insulin (CMS/HCC) ALBUMIN, RANDOM URINE W/CREATININE Routine 07/14/2023 10:30 AM EDT Type 2 diabetes mellitus without complication, without long-term current use of insulin (CMS/HCC) Essential hypertension LIPID PANEL, STANDARD Routine 07/14/2023 10:30 AM EDT Type 2 diabetes mellitus without complication, without long-term current use of insulin (CMS/HCC) Essential hypertension COLOGUARD COLON CANCER SCREENING (EXTERNAL RESULTS ONLY) Routine 04/09/2022 10:11 AM EST THINPREP IMAGING PAP AND HPV MRNA E6/E7 WITH REFLEX TO HPV 16,18/45 Routine 03/13/2022 9:47 AM EST from Last 3 Months or Most Recently Relevant to Health Maintenance Results * BI Mammogram Screening Tomosynthesis Bilateral (12/01/2023 10:55 AM EDT) Anatomical Region Laterality Modality Breast Bilateral Mammography 12/01/2023 10:5 5 AM EDT Narrative 12/25/2023 3:27 PM EDT ? [facility] [place] ? [address] ?[place] [address] ? Mammography Report ? Signed ? Patient: Kailash,Maye A ?MR#: [id number] ? : 1960 ?Acct:[id number] ? Age/Sex: 62 / F ?ADM Date: 08/12/24 ? Loc: HO.MAMMO ? Attending Dr: Sudeep Name MD ? Ordering Physician: Name,Sudeep MD ?Results: 2Benign Fi ?? ndings ? Date of Service: 12/01/23 ?Follow Up: 1 Year From Orig ?? inal Mammogram ? Procedure(s): MM tomosynthesis screening BI ?? Accession Number(s): [id number] ? cc: Name,Sudeep BESS ? EXAMINATION: ?? MM SCREENING DIGITAL BREAST TOMOSYNTHESIS, BILATERAL ? CLINICAL INFORMATION: ? Screening. Asymptomatic. ? COMPARISON: ?? Mammography: This study is compared with prior exams dating back to ? 2018. ? TECHNIQUE: ?? Digital breast tomosynthesis is performed in both the craniocaudal and ?? mediolateral oblique views along with computer-aided detection (CAD). ?? Direct 2-D images in the standard screening projections are also ?? obtained. ? FINDINGS: ?? There are scattered areas of fibroglandular density (ACR BI-RADS breast ?? composition Category b). ? There are no significant masses, abnormal calcifications, or other ?? abnormalities. ?? There is coarse area of calcification in the subcentimeter benign mass ?? of the upper outer quadrant of the right breast. ?? There is a biopsy tissue marker in the medial aspect of the right ?? breast at its deep third. ? MM/MM tomosynthesis screening BI ?? IMPRESSION: ?? No mammographic evidence of malignancy. ? ASSESSMENT: ? BI-RADS BI-RADS 2 - Benign Findings ? RECOMMENDATION: ?? Routine annual mammography screening. ? 1 year F/U ? This examination should not preclude the clinical evaluation of a ?? suspicious palpable abnormality. ? This patient's information was entered into a reminder system with a ?? target due date for their next mammogram. ? Electronically signed by: ??Valentina Mancia MD ??12/25/2023 03:24 PM EDT RP ? Dictated By: ?Valentina Mancia MD ? Signed By: ?<Electronically signed by Valentina Mancia MD in OV> ? 12/25/234 ? DD/ 1055 ? TD/TT: 12/01/23 1110 ? Chief Of Safety And Protection: ? Procedure Note Donotuseinterpreter, Image - 12/25/2023 [facility] [address] [place] [address] Mammography Report Signed Patient: Maye Linder AMR#: [id number] : 1960Acct:[id number] Age/Sex: 62 / FADM Date: 12/01/23 Loc: HO.MAMMO Attending Dr: Sudeep Barrow MD Ordering Physician: Sudeep Barrow MDResults: 2Benign Fi ndings Date of Service: 12/01/23Follow Up: 1 Year From Orig ina Mammogram Procedure(s): MM tomosynthesis screening BI Accession Number(s): [id number] cc: Sudeep Barrow MD EXAMINATION: MM SCREENING DIGITAL BREAST TOMOSYNTHESIS, BILATERAL CLINICAL INFORMATION: Screening. Asymptomatic. COMPARISON: Mammography: This study is compared with prior exams dating back to 2018. TECHNIQUE: Digital breast tomosynthesis is performed in both the craniocaudal and mediolateral oblique views along with computer-aided detection (CAD). Direct 2-D images in the standard screening projections are also obtained. FINDINGS: There are scattered areas of fibroglandular density (ACR BI-RADS breast composition Category b). There are no significant masses, abnormal calcifications, or other abnormalities. There is coarse area of calcification in the subcentimeter benign mass of the upper outer quadrant of the right breast. There is a biopsy tissue marker in the medial aspect of the right breast at its deep third. MM/MM tomosynthesis screening BI IMPRESSION: No mammographic evidence of malignancy. ASSESSMENT: BI-RADS BI-RADS 2 - Benign Findings RECOMMENDATION: Routine annual mammography screening. 1 year F/U This examination should not preclude the clinical evaluation of a suspicious palpable abnormality. This patient's information was entered into a reminder system with a target due date for their next mammogram. Electronically signed by: Valentina Mancia MD 12/25/2023 03:24 PM EDT RP Dictated By: Valentina Mancia MD Signed By: <Electronically signed by Valentina Mancia MD in OV> 12/25/23 1524 DD/ 1055 TD/TT: 12/01/23 1110 Chief Of Safety And Protection: us Sudeep Barrow MD IMG BI PROCEDURES Edited Result - Final * (ABNORMAL) POCT HGB A1C (10/16/2023 10:10 AM EDT) Hemoglobin A1C 6.4(A) 4.0 - 6.0 % Blood 10/16/2023 10:1 0 AM EDT us Sudeep Barrow MD POINT OF CARE TEST ENTER/EDIT OR DERABLES Final Result * Albumin, Random Urine W/Creatinine (07/14/2023 10:30 AM EDT) Creatinine, Urine 55.80 mg/dL [facility] Microalbumin Urine 7.0 mg/L [facility] Microalbum Creatinine Ratio Ur 12.5 <30 ug/mg cr [facility] Comment:Albumin/Creatinine R atio Reference Ranges: Normal: < 30 ug/mg creatinine Microalbuminuria: 30 - 300 ug/mg creatinineClinical Albuminuria: > 300 ug/mg creatinine Urine (Urine, Random) 07/14/2023 10:30 AM EDT 07/14/2023 11:22 AM EDT us Sudeep Barrow MD LAB URINE ORDERABLES Final Resul t [facility] [address] [place] [phone] * (ABNORMAL) Lipid Panel, Standard (07/14/2023 10:30 AM EDT) Triglycerides 84 <150 mg/dL [facility] Comment:Desirable Triglyceri de: less than 150 mg/dLBorderline High Triglyceride 150-199 mg/dLHigh Triglyceride: 200-499 mg/dLVery High Triglyceride: greater than or equal to 5OO mg/dL Cholesterol 203(H) <200 mg/dL [facility] Comment:Desirable Cholestero l: less than 200 mg/dLBorderline High Cholesterol: 200-239 mg/dLHigh Cholesterol: greater than 239 mg/dL LDL Cholesterol Calculated 125(H) <100 mg/dL [facility] Comment:Desirable LDL: less than 100 mg/dLNear Optimal/Above Optimal LDL: 110- 129 mg/dLBorderline High LDL: 130-159 mg/dLHigh LDL: 160-189 mg/dLVery High LDL: greater than or equal to 190 mg/dL HDL Cholesterol 62 >40 mg/dL [facility] Comment:Desirable HDL: great er than 40 mg/dL Note: This HDL assay may give artificially low results in patients with liver disease. Blood Venous blood specimen / Unknown 07/14/2023 10:30 AM EDT 07/14/2023 11:54 AM EDT us Sudeep Barrow MD LAB BLOOD ORDERABLES Final Resul t [facility] [address] [place] [phone] * Cologuard Colon Cancer Screening (04/09/2022 10:11 AM EST) Cologuard Cancer Screen Negative Comment:repeat in 3 yrs Stool 04/09/2022 10:1 1 AM EST us Sudeep Barrow MD POINT OF CARE TEST ENTER/EDIT OR DERABLES Final Result * THINPREP TIS PAP AND HPV mRNA E6/E7 WITH REFLEX TO HPV 16,18/45 (03/13/2022 9:47 AM EST) Clinical Information: None given [facility] COMMENT SEE COMMENT [facility] Comment: EXPLANATORY NOTE: ? The Pap is a screening test for cervical cancer. It is ?? not a diagnostic test and is subject to false negative ?? and false positive results. It is most reliable when a ?? satisfactory sample, regularly obtained, is submitted ?? with relevant clinical findings and history, and when ?? the Pap result is evaluated along with historic and ?? current clinical information. ?? COMMENT: This Pap test has been evaluated with computer assisted technology. [facility] Super[employer] : SEE COMMENT [facility] Comment: SXA, CT(ASCP) CT screening location: [address] ??[address] HPV nRNA E6/E7 Not Detected Not Detected [facility] Comment: Methodology: Microelectronics Technician-Mediated Amplification This assay detects E6/E7 viral messenger RNA (mRNA) from 14 high-risk HPV types (16,18,31,33,35,39,45,51,52,56,58,59,66,68). ? Cervical sources are required for HPV testing. If a vaginal source from a patient who has had a total hysterectomy with removal of cervix was ?? submitted, please contact the testing laboratory for alternative testing options. ?? For additional information, please refer to http://education.[a]list games/faq/ETW034s9 (This link if provided for information/ educational purposes only.) Interpretation/R esult: Negative for intraepithelial lesion or malignancy. [facility] LMP: MENOPAUSAL [facility] Prev. BX: NONE GIVEN [facility] Prev. PAP: 08/2016 NIL/HPV NEG [facility] Review [employer] : SEE COMMENT [facility] Comment: MORRIS, CT(ASCP) CT screening location: [address] ??[address] SOURCE: None given [facility] Statement Of Adequacy: SEE COMMENT [facility] Comment: Satisfactory for evaluation. Endocervical/transformation zone component present. 03/13/2022 9:47 AM EST [facility] ORDERABLES Final Result [facility] from Last 3 Months or Most Recently Relevant to Health Maintenance Insurance [facility] on file Care Teams Flight Operations Engineer Relationship Specialty Start Date End Date Name, MD Sudeep [address] [place] [id number] PCP - General Family Medicine 05/24/15
--- OUTSIDE RECORDS SUMMARY | 2024-06-16 11:55 | XMS_ITS | Clinical Summary ---
Author Organization [facility] Address [address] [place] [address] Care Team Providers Care Instructor Adjunct Surgical Technician Name Role Phone Unavailable Primary Care Provider Unavailabl e Social History Tobacco Use Types Packs/Day Years Used Date Smoking Tobacco: Never Assessed Sex and Gender Information Value Date Recorded Sex Assigned at Not on file Gender Identity Not on file Sexual Orientation Not on file Plan of Treatment Health Maintenance Due Date Last Done Comments Hepatitis C Virus Screening 1960 HIV Screening 12/22/1972 DTaP/Tdap/Td Vaccines (1 - Tdap) 12/22/1978 Pneumococcal Vaccines 50+ (1 of 1 - PCV) 12/22/2009 Zoster (Shingles) Vaccine (1 of 2) 12/22/2009 COVID-19 Vaccine ( - 2023-2 5 season) 2023 RSV Vaccine 60 years and old er and Patients (1 - 1-dose 75+ series) 12/22/2034 Hepatitis B Vaccines Aged Out No long er eligible based on patient's age to complete this topic Pneumococcal Vaccine: Pediat priya (0-5 Years) and At-Risk Patients (6 to 49 Years) Aged Out No longer eligible b ased on patient's age to complete this topic
== END 2024-06-16 10:14 | disposition home or self-care (01) ==
PROVIDERS: PCP Internal Medicine Geriatric Medicine; Visit Provider Nurse Practitioner Family
DX: J45.909 Unspecified asthma, uncomplicated (principal); J30.89 Other allergic rhinitis
CPT/HCPCS: 99213

== ENCOUNTER → 2024-06-16 09:58 | Outpatient (BNVA) | payer OTHER, SELFPAY | PROVIDERS: PCP Internal Medicine Geriatric Medicine; Visit Provider Nurse Practitioner Family | DX: J45.40 Moderate persistent asthma, uncomplicated (principal); J30.89 Other allergic rhinitis | CPT/HCPCS: 99212 ==

== ENCOUNTER 2025-01-07 11:06 | Outpatient (AMB) | payer OTHER, SELFPAY ==
[2025-01-07 11:08] VITALS: BP 136/72; PULSE 70; O2SAT 97; BMI 29.2
--- NOTE | 2025-01-07 11:08 | A.OFFVIS_ITS ---
Vital Signs 01/07/25 11:08 Height 5 ft 2 in Weight 159 lb 8 oz BMI 29.2 BP 136/72 Blood Pressure Location Rt brachial Position Sitting Pulse 70 Pulse Source Pulse Oximeter Pulse Oximetry (%) 97 Oxygen Delivery Method Room Air Intake Visit Reasons: moderate persistent asthma Industrial Sales Manager Required: Yes Industrial Sales Manager Language: Continuous Yarn Dyeing Machine Operator Services: Industrial Sales Manager Present Industrial Sales Manager Name: Kaylah Payton LM Allergies aspirin Allergy (Unknown, Verified 01/07/25 11:17) Unknown penicillin V Allergy (Unknown, Verified 01/07/25 11:17) Unknown seasonal allergies Allergy (Uncoded 01/07/25 11:17) asthma sx HPI HPI moderate persistent asthma: Details: Maye is a pleasant 64 year old female, never smoker, with underlying asthma, seasonal allergies, HTN, DMII and anxiety. She reports good control of respiratory symptoms with the use of Advair however more notable dyspnea with activity as she reports recently engaging in physical activity. She denies cough, chest tightness of wheezing. She denies any visits to urgent care or hospitalizations related to respiratory distress since the last visit. Today she presents for routine visit. [facility] Social History Patient Tobacco Use Status: Never used Tobacco Review of Systems Const Denies chills, Denies excessive sweating, Denies fever(s), Denies headache(s) and Denies night sweats Eyes Denies dry eyes, Denies irritation and Denies itchy eyes ENT Reports Normal hearing present, Denies headache(s), Denies nasal congestion, Denies nasal discharge, Denies post nasal drip and Denies sore throat Card Denies chest pain, Denies chest pain at rest, Denies chest pain with activity, Denies claudication, Denies leg edema, Denies dyspnea, Denies orthopnea and Denies paroxysmal nocturnal dyspnea Resp Denies chest congestion, Denies cough, Denies excessive phlegm production, Denies pain on inspiration, Denies pain with cough, Denies dyspnea, Denies stridor and Denies wheezing Musc Denies myalgias Neuro Reports Normal hearing present and Denies headache(s) Endo Denies excessive sweating Fernando/Lymph Denies lymphadenopathy Aller/Immun Denies itchy eyes, Denies seasonal rhinorrhea and Denies wheezing Physical Exam Vital Signs: Last Vital Signs Pulse 70 01/07/25 11:08 BP 136/72 01/07/25 11:08 Pulse Ox 97 01/07/25 11:08 Oxygen Delivery Method Room Air 01/07/25 11:08 BMI result Body Mass Index 29.2 Const General: cooperative, healthy appearing, comfortable, no acute distress, well developed and alert Nutritional Appearance: obese Orientation/consciousness: patient oriented x3 Limitations: no limitations HEENT Head: Yes normal to inspection, Yes normocephalic and Yes atraumatic Ears: hearing grossly normal bilaterally and external ears normal Eyes General: appearance normal, both eyes and all related structures Eyelids: Yes eyelids normal Sclerae: sclerae normal EOM: EOMs intact bilaterally Neck Neck: Yes normal visual inspection and Yes no lymphadenopathy Lymphatic: no lymphadenopathy noted Chest Chest palpation & inspection: normal inspection of the chest Resp Effort & Inspection: normal respiratory effort, able to speak in complete sentences, no audible wheezes, no cough, no stridor, not tachypneic, no tripod positioning and no use of accessory muscles Auscultation: clear to auscultation bilaterally Cardio Jugular venous distension: no JVD Rate: regular rate Rhythm: regular rhythm Skin Other: warm, dry General skin exam: no rashes or lesions noted Neuro General: patient oriented x3 Cranial nerves: Yes Normal hearing present Cognition (Neuro): normal cognition Gait exam (Neuro): Normal gait present Extrem General: Yes normal to inspection, Yes capillary refill normal, Yes no clubbing, cyanosis or edema and Yes no pedal edema Psych Appearance: grossly normal and well kempt Speech and movement: Normal speech and movement present and Clear speech present Affect: normal affect Attitude: cooperative Thought process: Normal thought process present Thought content: Normal thought content present Insight: Good insight present (Psych) Judgement: Good judgement present (Psych) Assessment & Plan Assessment & Plan (1) Asthma: Code(s): J45.909 - Unspecified asthma, uncomplicated Category: Medical (2) Environmental and seasonal allergies: Code(s): J30.89 - Other allergic rhinitis Category: Medical Plan Maye reports more notable dyspnea on exertion since engaging activity, encouraged patient to increase Advair 230 mcg to 2 inhalations BID and consider using albuterol MDI 15-20 minutes prior to activity. If no benefit she is aware to call. All questions were answered and patient is in agreement of plan. Will follow up in 3 months or sooner if needed. Medications: Changed From Advair HFA 230-21 mcg/actuation (fluticasone propion-salmeterol) 1 inh inhalation Q12H 12 grams 6RF NS J45.909 - Unspecified asthma, uncomplicated To Advair HFA 230-21 mcg/actuation (fluticasone propion-salmeterol) 2 inhalations inhalation Q12H 12 grams 6RF NS J45.909 - Unspecified asthma, uncomplicated Coding Level of Care Code Est Pt Level 4 (87724) Diagnoses Asthma J45.909 Environmental and seasonal allergies J30.89
--- OUTSIDE RECORDS SUMMARY | 2025-01-07 11:45 | XMS_ITS | Clinical Summary ---
Author Organization [facility] Address [address] [place] [address] Care Team Providers Care Technical Services Specialist Name Role Phone Unavailable Primary Care Provider Unavailabl e Social History Tobacco Use Types Packs/Day Years Used Date Smoking Tobacco: Never Assessed Comments Unknown Sex and Gender Information Value Date Recorded Sex Assigned at Not on file Legal Sex Female 3:06 PM EDT Gender Identity Not on file Sexual Orientation Not on file Plan of Treatment Health Maintenance Due Date Last Done Comments Advance Care Planning 1960 Hepatitis C Virus Screening 1960 HIV Screening 12/22/1972 DTaP/Tdap/Td Vaccines (1 - Tdap) 12/22/1978 Pneumococcal Vaccines 50+ (1 of 1 - PCV) 12/22/2009 Zoster (Shingles) Vaccine (1 of 2) 12/22/2009 COVID-19 Vaccine ( - 2023-2 5 season) 2024 RSV Vaccine 60 years and old er and Patients (1 - 1-dose 75+ series) 12/22/2034 Hepatitis B Vaccines Aged Out No long er eligible based on patient's age to complete this topic
--- OUTSIDE RECORDS SUMMARY | 2025-01-07 11:45 | XMS_ITS | Encounter Summary ---
Author Organization [facility] Address [address] [facility] 7[address] [place] [address] Care Team Providers Care Manager Of Human Resources Name Role Phone Name, Sudeep BESS Primary Care Provider [phone] Reason for Visit * Reason Comments Med Refill Encounter Details Date Type Department Care Team ([facility] st Contact Info) Description 11/24/2023 Refill [facility] [address] [place], [place] [phone] Name, MD Sudeep [address] [place], [place] [phone] Social History Tobacco Use Types Packs/Day Years Used Date Smoking Tobacco: Never Smokeless Tobacco: Never Alcohol Use Standard Drinks/Week Comments Yes 0 (1 standard drink = 0.6 oz pur e alcohol) occassional Depression Answer Date Recorded Patient Health Questionnaire-9 [...] Care Team (Late st Contact Info) Description 01/17/2025 1:45 PM EDT Office Visit [facility] [address] [place] [phone] NameSudeep MD [address] [place] [phone] documented as of this encounter Visit Diagnoses Not on filedocumented in this encounter Additional Health Concerns Assessment Noted Time PHQ-9 Depression Total Score: 0 07/14/19 24 9:31 AM EDT documented as of this encounter Care Teams Manager Of Human Resources Relationship Specialty Start Date End Date Name, MD Sudeep [address] [place] [phone] PCP - General Family Medicine 05/24/15 documented as of this encounter
--- OUTSIDE RECORDS SUMMARY | 2025-01-07 11:45 | XMS_ITS | Clinical Summary ---
Author Organization [facility] Address [address] [facility] 7[address] [place] [address] Care Team Providers Care Telegraph Service Rater Name Role Phone Name, Sudeep BESS Primary Care Provider [phone] Allergies Active Allergy Reactions Criticality Noted Date Comments Aspirin Itching 10/13/2015 Penicillin G 10/13/2015 Penicillins Swelling 05/22/2022 Propranolol 10/13/2015 Medications primidone (Mysoline) 50 MG tabletIndication s:Moderate persistent asthma, unspecified whether complicated Take 1 tablet (50 mg) by mouth in the morning. 90 tablet 3 10/17/19 23 Active fluticasone (Flonase) 50 MCG/ACT nasal spray Administer 2 sprays into each nostril in the morning. Shake gently. Before first use, prime pump. After use, clean tip and replace cap. 16 g 2 07/14/19 24 Active Blood Pressure kit Use twice a day 1 kit 07/14/19 24 Active fluticasone-salm eterol (Advair HFA) 230-21 MCG/ACT inhalerIndicatio ns:Moderate persistent asthma without complication Inhale 2 puffs every 12 (twelve) hours. 10/16/19 24 Active metFORMIN (Glucophage) 500 MG tabletIndication s:Type 2 diabetes mellitus without complication, without long-term current use of insulin (CMS/FORMERLY [facility]) Take 1 tablet (500 mg) by mouth Once per day. 90 tablet 3 02/09/20 24 025 Active amLODIPine (Norvasc) 2.5 MG tablet Take 2 tablets (5 mg) by mouth Once per day. 60 tablet 11 02/09/20 24 025 Active atorvastatin (Lipitor) 40 MG tabletIndication s:Type 2 diabetes mellitus without complication, without long-term current use of insulin (CMS/HCC) Take 1 tablet (40 mg) by mouth Once per day. 90 tablet 3 02/09/20 24 025 Active omeprazole (PriLOSEC) [address] capsuleIndicatio ns:Moderate persistent asthma, unspecified whether complicated TAKE 1 CAPSULE BY MOUTH EVERY DAY 30 MINUTES TO 1 HOUR BEFORE A MEAL 90 capsule 3 02/09/20 24 Active montelukast (Singulair) 10 MG tabletIndication s:Moderate persistent asthma, unspecified whether complicated Take 1 tablet (10 mg) by mouth in the evening. 90 tablet 3 02/09/20 24 025 Active Semaglutide, 2 MG/DOSE, (Ozempic, 2 MG/DOSE,) 8 MG/3ML solution pen-injectorIndi cations:Type 2 diabetes mellitus without complication, without long-term current use of insulin (CMS/HCC) Inject 0.75 mL (2 mg) under the skin 1 (one) time per week. 3 mL 11 10/09/19 25 Active Ventolin HFA 108 (90 Base) MCG/ACT inhalerIndicatio ns:Moderate persistent asthma without complication INHALE 2 PUFFS BY MOUTH EVERY 4 HOURS NEEDED FOR WHEEZING OR SHORTNESS OF BREATH 18 g 12/11/19 25 Active Ventolin HFA 108 (90 Base) MCG/ACT inhalerIndicatio ns:Moderate persistent asthma without complication INHALE 2 PUFFS BY MOUTH EVERY 4 HOURS NEEDED FOR WHEEZING OR SHORTNESS OF BREATH 18 g 11/16/19 25 025 Discontinued Active Problems Problem Noted Date Diagnosed Date Coarse tremor 12/09/2017 Moderate persistent asthma 02/14/2017 Low back pain radiating to right leg 01/01/2017 Type 2 diabetes mellitus without complication Anxiety 01/17/2016 Essential hypertension 01/17/2016 Heartburn 06/19/2015 Migraine 06/19/2015 Resolved Problems Problem Noted Date Diagnosed Date Resolved Date Cough 06/20/2022 02/09/2024 Exacerbation of asthma 01/13/201702/08 Hypoxia 01/13/2017 02/09/2024 Prediabetes 07/30/2016 02/09/2024 Mild persistent asthma 06/19/201506/20 Encounters Date Type Department Care Team Description 12/10/2024 Refill [facility] [address] [place] [address] Melody Marsh ANP Moderate persistent asthma without complication 11/13/2024 Refill [facility] [address] [place] [address] Sudeep Barrow MD Moderate persistent asthma without complication 10/08/2024 11:15 AM EDT Office Visit [facility] [address] [place] [address] Sudeep Barrow MD Type 2 diabetes mellitus without complication, without long-term current use of insulin ([facility]) (Primary Dx) 10/08/2024 Travel from Last 3 Months Immunizations Immunization Administration Dates Next Due Influenza injectable quadriv alent preservative free 06/19/2015 Influenza, IIV3, injectable 12/22/2012,1 05/10/2011,01/22/2011,02/16,01/11/2009 Novel [id number], preservative-free 04/17/2009 Pneumococcal Polysaccharide PPSV23 07/17/2009 Td (adult), unspecified 11/07/2000 Tdap 02/05/2012 Social History Tobacco Use Types Packs/Day Years Used Date Smoking Tobacco: Never Smokeless Tobacco: Never Tobacco Cessation:Counseling Given: Not Answered Alcohol Use Standard Drinks/Week Comments Yes 0 (1 standard drink = 0.6 oz pur e alcohol) occassional Depression Answer Date Recorded Patient Health Questionnaire-9 Score 0 10/08/2024 Patient Health Questionnaire-9 Score 0 10/08/2024 Last PHQ-9: Questionnaire Data Not on file 0 10/08/2024 Housing Stability Answer Date Recorded What is [...] Date Recorded Patient Health Questionnaire-2 Score 0 10/08/2024 Comments Unknown Sex and Gender Information Value Date Recorded Sex Assigned at Female 02/18/2022 10:18 AM EDT Legal Sex Female 10:18 AM EDT Gender Identity Female 02/18/2022 10:18 AM EDT Sexual Orientation Choose not to disclose 2021 10:18 AM EDT Last Filed Vital Signs Vital Sign Reading Time Taken Comments Blood Pressure 138/74 10/08/2024 11:54 AM EDT Pulse 72 10/08/2024 11:16 AM EDT Temperature 36.3 C (97.3 F) 10/08/2024 11:16 AM EDT Respiratory Rate 18 10/08/2024 11:16 AM EDT Oxygen Saturation 97% 10/08/2024 11:16 AM EDT Inhaled Oxygen Concentration - - Weight 74.4 kg (164 lb) 10/08/2024 11:16 AM EDT Height 157.5 cm (5' 2 ) 10/08/2024 11:16 AM EDT Body Mass Index 30 10/08/2024 11:16 AM EDT Plan of Treatment Upcoming Encounters Date Type Department Care Team (Late st Contact Info) Description 01/17/2025 1:45 PM EDT Office Visit [facility] [address] [place] [phone] Name, MD Sudeep [address] [place] [phone] Health Maintenance Due Date Last Done Comments CT Colonography 1959 Colonoscopy 1959 FIT 1959 FOBT 1960 Sigmoidoscopy 1960 Eye Exam 12/22/1969 Alcohol/Substance Use Screening 1971 Hepatitis C Screening 12/22/1977 Zoster Vaccines (1 of 2) 12/22/2009 Pneumococcal Vaccine: 50+ Years (2 of 2 - PCV) 07/17/2010 07/17/2009 RSV Patients and Patients Aged 60 years or older (1 - Risk 60-74 years 1-dose series) 2019 DTaP/Tdap/Td Vaccines (2 - Td or Tdap) 02/04/2022 02/05/2012, 11/07/2000 Diabetes: Foot Exam 07/13/2024 07/14/2023, 07/14/2023, 07/14/2023, Additional history exists Diabetes: Urine Protein Screening 07/13/2024 07/14/2023, 06/12/2022, 11/05/2021, Additional history exists Lipid Panel 07/13/2024 07/14/2023, 05/23, 11/05/2021, Additional history exists SDOH Screening 07/13/2024 07/14/2023 COVID-19 Vaccine ( season) 2024 08/31/2021, 03/14/2021, 09/07/2020 Influenza Vaccine (#1) 2024 6, 12/22/2012, 03/10/2012, Additional history exists Pap Smear 03/13/2025 03/13/2022 Colorectal Cancer Screening 04/09/2025 Diabetes: Hemoglobin A1C 04/09/2025 025, 06/22/2024, 10/16/2023, Additional history exists FIT DNA/Cologuard 04/09/2025 04/09/2022 Depression Screening 10/08/2025 10/08/2024, 10/09/19 Tobacco Screening 10/08/2025 10/08/2024 Mammogram 11/30/2025 12/01/2023, 010 07/2020, 04/24/2020, Additional history exists Cervical Cancer [...] patient's age to complete this topic Meningococcal B Vaccine Aged Out No l onger eligible based on patient's age to complete [...] Procedure Name Priority Date/Time Associated Diagnosis Comments POCT GLYCATED HEMOGLOBIN, TOTAL Routine 10/08/2024 11:17 AM EDT Type 2 diabetes mellitus without complication, without long-term current use of insulin ([facility]) POCT GLUCOSE Routine 10/08/2024 11:17 AM EDT Type 2 diabetes mellitus without complication, without long-term current use of insulin ([facility]) BI MAMMOGRAM SCREENING TOMOSYNTHESIS BILATERAL Routine 12/01/2023 10:55 AM EDT Encounter for screening mammogram for malignant neoplasm of breast ALBUMIN, RANDOM URINE W/CREATININE Routine 07/14/2023 10:30 AM EDT Type 2 diabetes mellitus without complication, without long-term current use of insulin ([facility]) Essential hypertension LIPID PANEL, STANDARD Routine 07/14/2023 10:30 AM EDT Type 2 diabetes mellitus without complication, without long-term current use of insulin ([facility]) Essential hypertension COLOGUARD COLON CANCER SCREENING (EXTERNAL RESULTS ONLY) Routine 04/09/2022 10:11 AM EST THINPREP IMAGING PAP AND HPV MRNA E6/E7 WITH REFLEX TO HPV 16,18/45 Routine 03/13/2022 9:47 AM EST from Last 3 Months or Most Recently Relevant to Health Maintenance Results * (ABNORMAL) POCT HGB A1C (10/08/2024 11:17 AM EDT) Hemoglobin A1C 6.1(A) 4.0 - 6.0 % QC Media Lot # [id number] Lot# Expiration Date Blood 10/08/2024 11:1 7 AM EDT us Sudeep Barrow MD POINT OF CARE TEST ENTER/EDIT OR DERABLES Final Result * POCT Glucose (10/08/2024 11:17 AM EDT) Glucose Blood, POC 133 60 - 200 mg/dL QC Media Lot # [id number] Lot# Expiration Date 103,025 Blood Capillary blood specimen / Unknown 10/08/2024 11:17 AM EDT us Sudeep Barrow MD POINT OF CARE TEST ENTER/EDIT OR DERABLES Final Result * BI Mammogram Screening Tomosynthesis Bilateral (12/01/2023 10:55 AM EDT) Anatomical Region Laterality Modality Breast Bilateral Mammography 12/01/2023 10:5 5 AM EDT Narrative 12/25/2023 3:27 PM EDT [facility] [address] [place] [address] Mammography Report Signed Patient: Maye Linder MR#: [id number] : 1960 Acct:[id number] Age/Sex: 62 / F ADM Date: 12/01/23 Loc: HO.MAMMO Attending Dr: Sudeep Barrow MD Ordering Physician: Sudeep Barrow MD Results: 2Benign Fi ndings Date of Service: 12/01/23 Follow Up: 1 Year From [facility] Mammogram Procedure(s): MM tomosynthesis screening BI Accession Number(s): [id number] cc: Sudeep Barrow MD EXAMINATION: MM SCREENING [...] 12/25/23 1524 DD/ 1055 TD/TT: 12/01/23 1110 Admin Secretary: Procedure Note Donotuseinterpreter, Image - 12/25/2023 [facility] [address] [place], [place] [address] Mammography Report Signed Patient: Maye Linder AMR#: [id number] : 1960Acct:[id number] Age/Sex: 62 / FADM Date: 12/01/23 Loc: [place] Attending Dr: Sudeep Barrow MD Ordering Physician: Sudeep Barrow MDResults: 2Benign ndings Date of Service: 12/01/23Follow Up: 1 Year From Orig ina Mammogram Procedure(s): MM tomosynthesis screening BI Accession Number(s): [id number] cc: Sudeep Barrow MD EXAMINATION: MM SCREENING [...] 12/25/23 1524 DD/ 1055 TD/TT: 12/01/23 1110 Admin Secretary: us Sudeep Barrow MD IMG BI PROCEDURES Edited Result - Final * Albumin, Random Urine W/Creatinine (07/14/2023 10:30 AM EDT) Creatinine, Urine 55.80 mg/dL [facility] Microalbumin Urine 7.0 mg/L [facility] Microalbum Creatinine Ratio Ur 12.5 <30 ug/mg cr [facility] Comment:Albumin/Creatinine R atio Reference Ranges: Normal: < 30 ug/mg creatinine Microalbuminuria: 30 - 300 ug/mg creatinineClinical Albuminuria: > 300 ug/mg creatinine Urine (Urine, Random) 07/14/2023 10:30 AM EDT 07/14/2023 11:22 AM EDT us Sudeep Barrow MD LAB URINE ORDERABLES Final Resul t [facility] [address] [place] [address] [phone] * (ABNORMAL) Lipid Panel, Standard (07/14/2023 10:30 AM EDT) Triglycerides 84 <150 mg/dL [facility] Comment:Desirable Triglyceri de: less than 150 mg/dLBorderline High Triglyceride 150-199 mg/dLHigh Triglyceride: 200-499 mg/dLVery High Triglyceride: greater than or equal to 5OO mg/dL Cholesterol 203(H) <200 mg/dL [facility] Comment:Desirable Cholestero l: less than 200 mg/dLBorderline High Cholesterol: 200-239 mg/dLHigh Cholesterol: greater than 239 mg/dL LDL Cholesterol Calculated 125(H) <100 mg/dL [facility] Comment:Desirable LDL: less than 100 mg/dLNear Optimal/Above Optimal LDL: 110- 129 mg/dLBorderline High LDL: 130-159 mg/dLHigh LDL: 160-189 mg/dLVery High LDL: greater than or equal to 190 mg/dL HDL Cholesterol 62 >40 mg/dL [facility] Comment:Desirable HDL: great er than 40 mg/dL Note: This HDL assay may give artificially low results in patients with liver disease. Blood Venous blood specimen / Unknown 07/14/2023 10:30 AM EDT 07/14/2023 11:54 AM EDT us Sudeep Barrow MD LAB BLOOD ORDERABLES Final Resul t [facility] [address] [place] [phone] * Cologuard Colon Cancer Screening (04/09/2022 [...] [facility] Comment: EXPLANATORY NOTE: The Pap is a screening test for cervical cancer. It is not a diagnostic test and is subject to false negative and false positive results. It is most reliable when a satisfactory sample, regularly obtained, is submitted with relevant clinical findings and history, and when the Pap result is evaluated along with historic and current clinical information. COMMENT: This Pap test has been evaluated with computer assisted technology. [facility] Silviculture Teacher : SEE COMMENT [facility] Comment: SXA, CT(ASCP) CT screening location: [place] [address] HPV nRNA E6/E7 Not Detected Not Detected [facility] Comment: Methodology: Traffic Counter-Mediated Amplification This assay detects E6/E7 viral messenger RNA (mRNA) from 14 high-risk HPV types (16,18,31,33,35,39,45,51,52,56,58,59,66,68). Cervical sources are required for HPV testing. If a vaginal source from a patient who has had a total hysterectomy with removal of cervix was submitted, please contact the testing laboratory for alternative testing options. For additional information, please refer to http://education.Cirqle/faq/GCT674r1 (This link if provided for information/ educational purposes only.) Interpretation/R esult: Negative for intraepithelial lesion or malignancy. [facility] LMP: MENOPAUSAL [facility] Prev. BX: NONE GIVEN [facility] Prev. PAP: 08/2016 NIL/HPV NEG [facility] Review [employer] Teacher : SEE COMMENT [facility] Comment: MORRIS, CT(ASCP) CT screening location: [place] [address] SOURCE: None given [facility] Statement Of Adequacy: SEE COMMENT [facility] Comment: Satisfactory for evaluation. Endocervical/transformation zone component present. 03/13/2022 9:47 AM EST Gaby Sorto CNM LAB PATHOLOGY ORDERABLES Final Result [facility] from Last 3 Months or Most Recently Relevant to Health Maintenance Insurance [employer] < [address] [place] [id number] GENERIC TPL on file Care Teams Telegraph Service Rater Relationship Specialty Start Date End Date Name, MD Sudeep [address] [place] [phone] PCP - General Family Medicine 2/3/16
== END 2025-01-07 11:32 | disposition home or self-care (01) ==
LOC: HO.HPSW 11:07
PROVIDERS: PCP Internal Medicine Geriatric Medicine; Visit Provider Nurse Practitioner Family
DX: J45.909 Unspecified asthma, uncomplicated (principal); J30.89 Other allergic rhinitis
CPT/HCPCS: 99214

== ENCOUNTER → 2025-01-07 11:06 | Outpatient (BNVA) | payer OTHER, SELFPAY | PROVIDERS: PCP Internal Medicine Geriatric Medicine; Visit Provider Nurse Practitioner Family | DX: J45.40 Moderate persistent asthma, uncomplicated (principal); J30.89 Other allergic rhinitis; R06.09 Other forms of dyspnea | CPT/HCPCS: 99212 ==

== ENCOUNTER 2025-02-14 10:27 | Outpatient (REF) | payer OTHER, SELFPAY ==
[2025-02-14 12:07] LABS: Microalbum/Creatinine Ratio Ur 3.5 ug/mg cr (<30)
--- OUTSIDE RECORDS SUMMARY | 2025-02-14 12:38 | XMS_ITS | Clinical Summary ---
Author Organization [employer] Address [address] [facility] 7t [place] [address] Care Team Providers Care Ethylene Oxide Panelboard Operator Name Role Phone Name, Sdueep BESS Primary Care Provider [phone] Allergies Active Allergy Reactions Criticality Noted Date Comments Aspirin Itching 10/13/2015 Penicillin G 10/13/2015 Penicillins Swelling 05/22/2022 Propranolol 10/13/2015 Medications primidone (Mysoline) 50 MG tabletIndicatio ns:Moderate persistent asthma, unspecified whether complicated Take 1 tablet (50 mg) by mouth in the morning. 90 tablet 3 10/17/19 Active fluticasone (Flonase) 50 MCG/ACT nasal spray Administer 2 sprays into each nostril in the morning. Shake gently. Before first use, prime pump. After use, clean tip and replace cap. 16 g 2 07/14/19 24 Active Blood Pressure kit Use twice a day 1 kit 07/14/19 Active metFORMIN (Glucophage) 500 MG tabletIndicatio ns:Type 2 diabetes mellitus without complication, without long-term current use of insulin (HCC) Take 1 tablet (500 mg) by mouth Once per day. 90 tablet 3 02/09/20 24 Active amLODIPine (Norvasc) 2.5 MG tablet Take 2 tablets (5 mg) by mouth Once per day. 60 tablet 11 02/09/20 24 Active omeprazole (PriLOSEC) [address] capsuleIndicati ons:Moderate persistent asthma, unspecified whether complicated TAKE 1 CAPSULE BY MOUTH EVERY DAY 30 MINUTES TO 1 HOUR BEFORE A MEAL 90 capsule 3 02/09/20 24 Active montelukast (Singulair) 10 MG tabletIndicatio ns:Moderate persistent asthma, unspecified whether complicated Take 1 tablet (10 mg) by mouth in the evening. 90 tablet 3 02/09/20 24 Active Ventolin HFA 108 (90 Base) MCG/ACT inhalerIndicati ons:Moderate persistent asthma without complication INHALE 2 PUFFS BY MOUTH EVERY 4 HOURS NEEDED FOR WHEEZING OR SHORTNESS OF BREATH 18 g 12/11/19 25 Active fluticasone-dandre meterol (Advair HFA) 230-21 MCG/ACT inhalerIndicati ons:Moderate persistent asthma, unspecified whether complicated Inhale 2 puffs every 12 (twelve) hours. 01/18/20 25 025 Active Semaglutide, 2 MG/DOSE, (Ozempic, 2 MG/DOSE,) 8 MG/3ML solution pen-injectorInd ications:Type 2 diabetes mellitus without complication, without long-term current use of insulin (HCC) Inject 0.75 mL (2 mg) under the skin 1 (one) time per week. 3 mL 11 01/18/20 25 Active atorvastatin (Lipitor) 40 MG tabletIndicatio ns:Type 2 diabetes mellitus without complication, without long-term current use of insulin (HCC) TAKE 1 TABLET(40 MG) BY MOUTH DAILY 90 tablet 3 02/10/20 25 Active fluticasone-dandre meterol (Advair HFA) 230-21 MCG/ACT inhalerIndicati ons:Moderate persistent asthma without complication Inhale 2 puffs every 12 (twelve) hours. 10/16/19 24 025 Discontinued(R eorder (will not trigger notification to Pharmacy)) atorvastatin (Lipitor) 40 MG tabletIndicatio ns:Type 2 diabetes mellitus without complication, without long-term current use of insulin (HCC) Take 1 tablet (40 mg) by mouth Once per day. 90 tablet 3 02/09/20 24 025 Discontinued Semaglutide, 2 MG/DOSE, (Ozempic, 2 MG/DOSE,) 8 MG/3ML solution pen-injectorInd ications:Type 2 diabetes mellitus without complication, without long-term current use of insulin (HCC) Inject 0.75 mL (2 mg) under the skin 1 (one) time per week. 3 mL 11 10/09/19 25 025 Discontinued(R eorder (will not trigger notification to Pharmacy)) Active Problems Problem Noted Date Diagnosed Date [...] Encounters Date Type Department Care Team Description 02/08/2025 Refill [facility] [address] [place] [address] Sudeep Barrow MD Type 2 diabetes mellitus without complication, without long-term current use of insulin ([facility]) 01/31/2025 1:30 PM EDT Telemedicine [facility] [address] [place] [phone] Sumi Becerra, CARMENZA Essential hypertension 01/31/2025 Telephone [facility] [address] [place] [phone] Sudeep Barrow MD 01/31/2025 Travel 01/17/2025 1:45 PM EDT Office Visit [address] [address] Sudeep Barrow MD Type 2 diabetes mellitus without complication, without long-term current use of insulin ([facility]) (Primary Dx); Moderate persistent asthma, unspecified whether complicated; Vaccine refused by patient; Essential hypertension 01/17/2025 Travel 01/14/2025 Telephone [facility] [address] [place], [place] [phone] Bibi Kong MA chart prep 12/10/2024 Refill [facility] [address] [place] [address] Melody Marsh ANP Moderate persistent asthma without complication from Last 3 Months Immunizations Immunization Administration Dates Next Due Influenza injectable quadriv alent preservative free 06/19/2015 Influenza, IIV3, injectable 12/22/2012,1 05/10/2011,01/22/2011,02/16,01/11/2009 Novel [id number], preservative-free 04/17/2009 Pneumococcal Polysaccharide PPSV23 07/17/2009 Td [...] Sign Reading Time Taken Comments Blood Pressure 140/72 01/17/2025 1:46 PM EDT Pulse 77 01/17/2025 1:46 PM EDT Temperature 36.8 C (98.2 F) 01/17/2025 1:46 PM EDT Respiratory Rate 18 01/17/2025 1:46 PM EDT Oxygen Saturation 96% 01/17/2025 1:46 PM EDT Inhaled Oxygen Concentration - - Weight 71 kg (156 lb 9.6 oz) 01/17/2025 1:46 PM EDT Height 160 cm (5' 3 ) 01/17/2025 1:46 PM EDT Body Mass Index 27.74 01/17/2025 1:46 PM EDT Plan of Treatment Health Maintenance Due Date Last Done Comments CT Colonography 1960 Colonoscopy 1960 FIT 1959 FOBT 1960 Sigmoidoscopy 1960 Eye Exam 12/22/1969 Hepatitis C Screening 12/22/1977 Zoster Vaccines (1 of 2) 12/22/2009 Pneumococcal Vaccine: 50+ Years (2 of 2 - PCV) 07/17/2010 07/17/2009 RSV Patients and Patients Aged 60 years or older (1 - Risk 60-74 years 1-dose series) 2019 DTaP/Tdap/Td Vaccines (2 - Td or Tdap) 02/04/2022 02/05/2012, 11/07/2000 Lipid Panel 07/13/2024 07/14/2023, 05/23, 11/05/2021, Additional history exists SDOH Screening 07/13/2024 07/14/2023 COVID-19 Vaccine ( season) 2024 08/31/2021, 03/14/2021, 09/07/2020 Influenza Vaccine (#1) 2024 6, 12/22/2012, 03/10/2012, Additional history exists Pap Smear 03/13/2025 03/13/2022 Colorectal Cancer Screening 04/09/2025 Diabetes: Hemoglobin A1C 04/09/2025 025, 06/22/2024, 10/16/2023, Additional history exists FIT DNA/Cologuard 04/09/2025 04/09/2022 Depression Screening 10/08/2025 10/08/2024, 10/09/19 Mammogram 11/30/2025 12/01/2023, 07/2020, 04/24/2020, Additional history exists Alcohol/Substance Use Screening 01/17/2026 01/17/2025 Diabetes: Foot Exam 01/17/2026 01/17/2025, 01/17/2025, 01/17/2025, Additional history exists Tobacco Screening 01/17/2026 01/17/2025 Diabetes: Urine Protein Screening 02/14/2026 02/14/2025, 07/14/2023, 06/12/2022, Additional history exists Cervical Cancer Screening 03/13/2027 [...] Procedure Name Priority Date/Time Associated Diagnosis Comments ALBUMIN, RANDOM URINE W/CREATININE Routine 02/14/2025 10:32 AM EDT Type 2 diabetes mellitus without complication, without long-term current use of insulin (HCC) POCT GLUCOSE Routine 01/17/2025 1:47 PM EDT Type 2 diabetes mellitus without complication, without long-term current use of insulin ([facility]/HCC) POCT GLYCATED HEMOGLOBIN, TOTAL Routine 10/08/2024 11:17 AM EDT Type 2 diabetes mellitus without complication, without long-term current use of insulin (CMS/HCC) BI MAMMOGRAM SCREENING TOMOSYNTHESIS BILATERAL Routine 12/01/2023 10:55 AM EDT Encounter for screening mammogram for malignant neoplasm of breast LIPID PANEL, STANDARD Routine 07/14/2023 10:30 AM EDT Type 2 diabetes mellitus without complication, without long-term current use of insulin ([facility]) Essential hypertension COLOGUARD COLON CANCER SCREENING (EXTERNAL RESULTS ONLY) Routine 04/09/2022 10:11 AM EST THINPREP IMAGING PAP AND HPV MRNA E6/E7 WITH REFLEX TO HPV 16,18/45 Routine 03/13/2022 9:47 AM EST from Last 3 Months or Most Recently Relevant to Health Maintenance Results * Albumin, Random Urine W/Creatinine (02/14/2025 10:32 AM EDT) Creatinine, Urine 141.64 mg/dL [facility] Microalbumin Urine 5.0 mg/L [facility] Microalbum Creatinine Ratio Ur 3.5 <30 ug/mg cr [facility] Comment:Albumin/Creatinine R atio Reference Ranges: Normal: < 30 ug/mg creatinine Microalbuminuria: 30 - 300 ug/mg creatinineClinical Albuminuria: > 300 ug/mg creatinine Urine (Urine, Random) 02/14/2025 10:32 AM EDT 02/14/2025 11:16 AM EDT Sudeep Barrow MD LAB URINE ORDERABLES Final Resul t [facility] [address] [place] [phone] * POCT Glucose (01/17/2025 1:47 PM EDT) Glucose Blood, POC 144 60 - 200 mg/dL QC Media Lot # [id number] Lot# Expiration Date Blood Capillary blood specimen / Unknown 01/17/2025 1:47 PM EDT us Sudeep Barrow MD POINT OF CARE TEST ENTER/EDIT OR DERABLES Final Result * (ABNORMAL) POCT HGB A1C (10/08/2024 11:17 AM EDT) Hemoglobin A1C 6.1(A) 4.0 - 6.0 % QC Media Lot # [id number] Lot# Expiration Date Blood 10/08/2024 11:1 7 AM EDT Sudeep Barrow MD POINT OF CARE TEST ENTER/EDIT OR DERABLES Final Result * BI Mammogram Screening Tomosynthesis Bilateral (12/01/2023 10:55 AM EDT) Anatomical Region Laterality Modality Breast Bilateral Mammography 12/01/2023 10:5 5 AM EDT Narrative 12/25/2023 3:27 PM EDT [facility]'[address] [place] [address] Mammography Report Signed Patient: Maye Linder MR#: [id number] : 1960 Acct:[id number] Age/Sex: 62 / F ADM Date: 12/01/23 Loc: HO.MAMMO Attending Dr: Sudeep Barrow MD Ordering Physician: Sudeep Barrow MD Results: 2Benign Fi ndings Date of Service: 12/01/23 Follow Up: 1 Year From [facility] Mammogram Procedure(s): MM tomosynthesis screening BI Accession Number(s): [id number] cc: Sudeep Barrow MD EXAMINATION: MM SCREENING [...] 12/25/23 1524 DD/ 1055 TD/TT: 12/01/23 1110 Sales Clerk Supervisor: Procedure Note Donotuseinterpreter, Image - 12/25/20[facility] [address] [place], [place] [address] Mammography Report Signed Patient: Maye Linder AMR#: [id number] : 1960Acct:[id number] Age/Sex: 62 / FADM Date: 12/01/23 Loc: HO.MAMMO Attending Dr: Sudeep Barrow MD Ordering Physician: Sudeep Barrow MDResults: 2Benign Fi ndings Date of Service: 12/01/23Follow Up: 1 Year From [facility] Mammogram Procedure(s): MM tomosynthesis screening BI Accession Number(s): [id number] cc: Sudeep Barrow MD EXAMINATION: MM SCREENING [...] 12/25/23 1524 DD/ 1055 TD/TT: 12/01/23 1110 Sales Clerk Supervisor: us Sudeep Barrow MD IM BI PROCEDURES Edited Result - Final * (ABNORMAL) Lipid Panel, Standard (07/14/2023 10:30 AM EDT) Triglycerides 84 <150 mg/dL [facility] Comment:Desirable Triglyceri de: less than 150 mg/dLBorderline High Triglyceride 150-199 mg/dLHigh Triglyceride: 200-499 mg/dLVery High Triglyceride: greater than or equal to 5OO mg/dL Cholesterol 203(H) <200 mg/dL [facility] Comment:Desirable Cholestero l: less than 200 mg/dLBorderline High Cholesterol: 200-239 mg/dLHigh Cholesterol: greater than 239 mg/dL LDL Cholesterol Calculated 125(H) <100 mg/dL [facility] Comment:Desirable LDL: less than 100 mg/dLNear Optimal/Above Optimal LDL: 110- 129 mg/dLBorderline High LDL: 130-159 mg/dLHigh LDL: 160-189 mg/dLVery High LDL: greater than or equal to 190 mg/dL HDL Cholesterol 62 >40 mg/dL [facility] Comment:Desirable HDL: great er than 40 mg/dL Note: This HDL assay may give artificially low results in patients with liver disease. Blood Venous blood specimen / Unknown 07/14/2023 10:30 AM EDT 07/14/2023 11:54 AM EDT us Sudeep Barrow MD LAB BLOOD ORDERABLES Final Resul t [facility] [address] [place] [phone] * Cologuard Colon Cancer Screening (04/09/2022 [...] with computer assisted technology. [facility] Director Auto : SEE COMMENT [facility] Comment: SXA, CT(ASCP) CT screening location: [place] [address] HPV nRNA E6/E7 Not Detected Not Detected [facility] Comment: Methodology: Camera Repairman-Mediated Amplification This assay detects E6/E7 viral messenger RNA (mRNA) from 14 high-risk HPV types (16,18,31,33,35,39,45,51,52,56,58,59,66,68). Cervical sources are required for HPV testing. If a vaginal source from a patient who has had a total hysterectomy with removal of cervix was submitted, please contact the testing laboratory for alternative testing options. For additional information, please refer to http://education.Familytic/faq/PLR678v9 (This link if provided for information/ educational purposes only.) Interpretation/R esult: Negative for intraepithelial lesion or malignancy. [facility] LMP: MENOPAUSAL [facility] Prev. BX: NONE GIVEN [facility] Prev. PAP: 08/2016 NIL/HPV NEG [facility] Review Director Auto : SEE COMMENT [facility] Comment: MORRIS, CT(ASCP) CT screening location: [place] [address] SOURCE: None given [facility] Statement Of Adequacy: SEE COMMENT [facility] Comment: Satisfactory for evaluation. Endocervical/transformation zone component present. 03/13/2022 9:47 AM EST Gaby Sorto CNM LAB PATHOLOGY ORDERABLES Final Result Performing Organization Address City/State/[facility] Co de Phone Number [facility] from Last 3 Months or Most Recently Relevant to Health Maintenance Insurance [employer] < [address] [place] [id number] GENERIC TPL on file Care Teams Ethylene Oxide Panelboard Operator Relationship Specialty Start Date End Date Name, MD Sudeep [address] [place] [phone] PCP - General Family Medicine 05/24/15
--- OUTSIDE RECORDS SUMMARY | 2025-02-14 12:38 | XMS_ITS | Encounter Summary ---
Author Organization [employer] Address [address] [facility] 7[address] [place] [address] Care Team Providers Care Manager Party Name Role Phone Name, Sudeep BESS Primary Care Provider [phone] Reason for Visit * Reason Comments Med Refill Encounter Details Date Type Department Care Team ([facility] st Contact Info) Description 11/24/2023 Refill [facility] [address] [place], [place] [phone] Name, MD Sudeep [address] [place], [place] [phone] Social History Tobacco Use Types Packs/Day Years [...] as of this encounter Plan of Treatment Not on file documented as of this encounter Visit Diagnoses Not on filedocumented in this encounter Additional Health Concerns Assessment Noted Time PHQ-9 Depression Total Score: 0 07/14/19 24 9:31 AM EDT documented as of this encounter Care Teams Manager Party Relationship Specialty Start Date End Date Name, MD Sudeep [address] [place] [address] PCP - General Family Medicine 05/24/15 documented as of this encounter
--- OUTSIDE RECORDS SUMMARY | 2025-02-14 12:38 | XMS_ITS | Clinical Summary ---
Author Organization [facility] Address [address] [place] [address] Care Team Providers Care Pattern Cutter Name Role Phone Unavailable Primary Care Provider [...] - 2023-2 5 season) 2024 RSV Vaccine 50 years and old er and Patients (1 - 1-dose 75+ series) 12/22/2034 Hepatitis B Vaccines Aged Out No long er eligible based on patient's age to complete this topic
--- OUTSIDE RECORDS SUMMARY | 2025-02-14 12:38 | XMS_ITS | Encounter Summary ---
Author Organization [email or web address] Address [address] [facility] 7t [place] [address] Care Team Providers Care Supervisor Machine Workers Name Role Phone Name, Sudeep BESS Primary Care Provider [phone] Reason for Visit * Reason Comments Med Refill Encounter Details Date Type Department Care Team ([facility] st Contact Info) Description 02/08/2025 Refill [facility] [address] [place], [place] [phone] Name, MD Sudeep [address] [place], [place] [phone] Type 2 diabetes mellitus without complication, without long-term current use of insulin (HCC) Social History Tobacco Use Types Packs/Day Years [...] documented as of this encounter Visit Diagnoses Diagnosis Type 2 diabetes mellitus without complication, without long-term current use of insulin (HCC) documented in this encounter Additional Health Concerns Assessment Noted Time PHQ-9 Depression Total Score: 0 10/09/19 25 12:03 PM EDT documented as of this encounter Care Teams Supervisor Machine Workers Relationship Specialty Start Date End Date Name, MD Sudeep [address] [place] [phone] PCP - General Family Medicine 05/24/15 documented as of this encounter
[2025-02-14 13:49] LABS: Alanine Aminotransferase 24 U/L (0-31); Albumin Level 4.2 g/dL (3.5-5.0); Alkaline Phosphatase 67 U/L (39-117); Anion Gap 10 (12-20); Aspartate Amino Transferase 30 U/L (5-31); Blood Urea Nitrogen 12 mg/dL (9-16); Calcium 9.0 mg/dL (8.4-10.2); Carbon Dioxide 30 mmol/L (22-29); Chloride 106 mmol/L (96-108); Cholesterol 216 mg/dL (<200); Estimated Glomerular Filt Rate > 60; HDL Cholesterol 65 mg/dL (>40); Potassium 4.2 mmol/L (3.3-5.1); Sodium 142 mmol/L (135-145); Total Protein 7.3 g/dL (6.5-8.0); Triglycerides 86 mg/dL (<150)
== END 2025-02-14 10:28 | disposition home or self-care (01) ==
LOC: HO.HHCL 10:27
PROVIDERS: PCP Internal Medicine Geriatric Medicine; Visit Provider Internal Medicine Geriatric Medicine
DX: E11.9 Type 2 diabetes mellitus without complications (principal)
CPT/HCPCS: 36415; 80053; 80061; 82043; 82570

== ENCOUNTER 2025-03-07 10:12 | Outpatient (REF) | payer OTHER, SELFPAY ==
--- NOTE | ~2025-03-07 | MM_ITS ---
EXAMINATION: MM SCREENING DIGITAL BREAST TOMOSYNTHESIS, BILATERAL CLINICAL INFORMATION: Screening. Asymptomatic. COMPARISON: Comparison made to multiple prior, most recent December 01, 2023, and most remote October 31, 2015. TECHNIQUE: Digital breast tomosynthesis is performed in mediolateral oblique and craniocaudal views along with computer-aided detection (CAD). Synthesized 2D images are generated from the tomosynthesis. FINDINGS: BREAST COMPOSITION: There are scattered areas of fibroglandular density. RIGHT BREAST: Tissue marker from previous needle core biopsy. No significant masses, suspicious calcifications or other abnormalities are seen. LEFT BREAST: No significant masses, suspicious calcifications or other abnormalities are seen. MM/MM tomosynthesis screening BI IMPRESSION: BILATERAL BREASTS: Benign, no mammographic evidence of malignancy. Normal interval follow-up is recommended in 12 months. ASSESSMENT: BI-RADS: Category 2: Benign RECOMMENDATION: Routine annual mammography screening. FOLLOW-UP: 1 year F/U This examination should not preclude the clinical evaluation of a suspicious palpable abnormality. This patient's information was entered into a reminder system with a target due date for their next mammogram. Electronically signed by: Antoinette Herman MD 03/07/2025 08:25 PM [facility]
--- OUTSIDE RECORDS SUMMARY | 2025-03-07 21:15 | XMS_ITS | Clinical Summary ---
Author Organization [facility] Address [address] [place] [address] Care Team Providers Care Director Regulatory Affairs Name Role Phone Unavailable Primary Care Provider [...]
== END 2025-03-07 10:13 | disposition home or self-care (01) ==
LOC: HO.MAMMO 10:12
PROVIDERS: PCP Internal Medicine Geriatric Medicine; Visit Provider Internal Medicine Geriatric Medicine
DX: Z12.31 Encounter for screening mammogram for malignant neoplasm of breast (principal)
CPT/HCPCS: 77063; 77067

== ENCOUNTER → 2025-03-07 11:00 | Outpatient (BNV) | payer OTHER, SELFPAY | PROVIDERS: PCP Internal Medicine Geriatric Medicine; Visit Provider Radiology Body Imaging | DX: Z12.31 Encounter for screening mammogram for malignant neoplasm of breast (principal) | CPT/HCPCS: 77063; 77067 ==